=== PATIENT | female | born 1985 | race Caucasian/White ===

== ENCOUNTER 2023-03-22 19:33 | Outpatient (REF) | payer OTHER, SELFPAY ==
[2023-03-26 12:12] LABS: Age Gdln ACOG Testing Note (.); HPV Aptima Negative (Negative); IGP, Aptima HPV, rfx 16/18,45 Note (.)
== END 2023-03-22 19:34 | disposition home or self-care (01) ==
LOC: LAB 19:33
PROVIDERS: Visit Provider Physician Assistant
DX: Z01.419 Encounter for gynecological examination (general) (routine) without abnormal findings (principal)
CPT/HCPCS: 87624; G0145

== ENCOUNTER 2023-03-28 07:58 | Outpatient (OUT) | payer OTHER, SELFPAY ==
--- NOTE | 2023-03-28 08:00 | US_ITS ---
The [address] [address] Patient Name: MIGEL LO MRN: [id number] date: 1985 Sex: F Assigned Patient Location: US Current Patient Location: LAB Accession/Order Number: [id number] Exam Date: 03/28/2023 08:00 Report Date: 03/28/2023 09:19 At the request of: CONCETTA PEARCE Procedure: US pelvis w/ transvaginal EXAM: Pelvic ultrasound HISTORY: . LLQ PAIN, PAIN WITH INTERCOURSE COMPARISON: None. TECHNIQUE: Transabdominal and transvaginal scanning was performed FINDINGS: Scanning of the pelvis demonstrates an anteverted uterus measuring 8.9 x 3.7 x 5.6 cm. Endometrial complex measures 5 mm. Right ovary measures 2.7 x 2.3 x 3.5 cm. Color-flow is noted. Resistive indexes 0.6. Follicles are noted. Left ovary measures 3.2 x 2.3 x 2.4 cm. Color-flow is noted. Resistive indexes 0.6. Follicles are noted. No fluid is noted in the pelvis. US/US pelvis w/ transvaginal IMPRESSION: Normal ultrasound of the pelvis. Electronically authenticated by: MILTON GOMEZ Date: 03/28/2023 09:19
== END 2023-03-28 07:59 | disposition home or self-care (01) ==
LOC: US 07:58
PROVIDERS: Visit Provider Obstetrics & Gynecology
DX: Z00.00 Encounter for general adult medical examination without abnormal findings (principal); E78.5 Hyperlipidemia, unspecified; R73.09 Other abnormal glucose; R10.32 Left lower quadrant pain
CPT/HCPCS: 36415; 76830; 76856; 80053; 80061; 83036; 84436; 84443; 84481; 85025

== ENCOUNTER 2023-03-28 09:01 | Outpatient (OUT) | payer OTHER, SELFPAY ==
[2023-03-28 09:31] LABS: Basophils Absolute Auto 0.1 10^3/uL (0.0-0.1); Basophils Percent Auto 1.2 % (0.2-2.0); Eosinophils Absolute Auto 0.2 10^3/uL (0.0-0.7); Eosinophils Percent Auto 3.1 % (0.9-7.0); Hematocrit 38.8 % (36.0-48.0); Hemoglobin 12.8 g/dL (12.0-16.0); Immature Granulocytes Abs Auto 0.03 10^3/uL (0.00-0.03); Immature Granulocytes Pct Auto 0.4 % (0.0-0.5); Lymphocytes Absolute Auto 2.5 10^3/uL (1.2-3.8); Mean Corpuscular Hemoglobin 29.7 pg (26.7-34.0); Monocytes Absolute Auto 0.5 10^3/uL (0.3-0.8); Monocytes Percent Auto 6.3 % (1.7-12.0); Neutrophils Absolute Auto 4.4 10^3/uL (1.4-6.5); Platelet Count 240 10^3/uL (150-450); Red Blood Count 4.31 10^6/uL (4.20-5.40); Red Cell Distribution Width 12.7 % (11.0-15.0); White Blood Count 7.8 10^3/uL (4.0-11.0)
[2023-03-28 11:18] LABS: Alanine Aminotransferase 23 U/L (14-59); Albumin Globulin Ratio 0.9; Albumin Level 3.7 g/dL (3.4-5.0); Alkaline Phosphatase 78 U/L (46-116); Anion Gap 9.9; Aspartate Amino Transferase 22 U/L (15-37); BUN Creatinine Ratio 22.1; Bilirubin Total 0.4 mg/dL (0.2-1.0); Calcium 8.9 mg/dL (8.5-10.1); Carbon Dioxide 29.4 mmol/L (21.0-32.0); Chloride 103 mmol/L (98-107); Chol HDL Ratio 3.1; Cholesterol 135 mg/dL (<=200); Estimated GFR (African America >60 (>=60); Estimated GFR (Non-African Ame >60 (>=60); Free T3 2.46 pg/mL (2.18-3.98); Glucose 87 mg/dL (74-106); HDL Cholesterol 44 mg/dL (40-60); LDL Cholesterol Calculated 70.8 mg/dL; Potassium 4.3 mmol/L (3.5-5.1); Sodium 138 mmol/L (136-145); Thyroid Stimulating Hormone 2.798 uIU/mL (0.358-3.740); Total Protein 7.7 g/dL (6.4-8.2); Triglycerides 101 mg/dL (<=150); VLDL CHOLESTEROL 20.2 mg/dL
[2023-03-28 11:43] LABS: Estimated Average Glucose 100 mg/dL; Glycohemoglobin A1C 5.1 % (4.5-6.2)
== END 2023-03-28 09:02 | disposition home or self-care (01) ==
LOC: LAB 09:04
PROVIDERS: PCP Family Medicine; Visit Provider Family Medicine
DX: Z00.00 Encounter for general adult medical examination without abnormal findings (principal); E78.5 Hyperlipidemia, unspecified; R73.09 Other abnormal glucose
CPT/HCPCS: 36415; 80053; 80061; 83036; 84436; 84443; 84481; 85025

== ENCOUNTER 2025-02-20 09:47 | Outpatient (OUT) | payer OTHER, SELFPAY ==
--- OUTSIDE RECORDS SUMMARY | 2025-02-20 09:54 | XMS_ITS | Clinical Summary ---
Author Organization [facility] Address [address] [place] [address] Care Team Providers Care Graduating Machine Operator Name Role Phone Mario Olivo MD Primary Care Provider [phone] Allergies Active AllergyReactionsCriticalityNoted JefuDjgwylklXdugsDwdlshv45/20/2017 NEOSPORIN Red dots Medications MedicationSigDispense QuantityRefillsLast FilledStart DateEnd DateStatus tacrolimus (Protopic) 0.1 % ointment Indications:Rash and other nonspecific skin eruptionApply to affected areas, twice a day when flared, 30 day supply 60 g 1105Active ivermectin (Stromectol) 3 MG tablet Indications:Rash and other nonspecific skin eruptionTake 5 tablets all together on one day, repeat in 1 week 10 tablet 5Active Active Problems No known active problems Family History Medical HistoryRelationNameCommentsBreast cancerFather's SisterRelationName StatusCommentsDaughterAliveFatherAliveFather's SisterMotherAliveSonAlive Social History Tobacco UseTypesPacks/DayYears UsedDateSmoking Tobacco: NeverSmokeless Tobacco: Never Tobacco Cessation:Counseling Given: Not Answered Alcohol UseStandard Drinks/WeekCommentsYes0 (1 standard drink = 0.6 oz pure alcohol)Caffeine intake: 1 can energy drink dailyAUDIT-CAnswerDate RecordedQ1: How often do you have a drink containing alcohol?Monthly or less03/20/2023Q2: How many drinks containing alcohol do you have on a typical day when you are drinking?1 or Q3: How often do you have six or more drinks on one occasion?Never12/03/2023CommentsUnknownSex and Gender InformationValue Date RecordedSex Assigned at DpmhnFfncpx97/04/2023 11:34 AM ESTLegal SexFemale 06/30/2022 7:03 PM EDTGender AbkewukmVatajy32/04/2023 11:34 AM ESTSexual WvojvhckndlDrhxneip66/04/2023 11:34 AM EST Last Filed Vital Signs Vital SignReadingTime TakenCommentsBlood Zybpqqyj984/7004/05/2023 8:32 AM EST Pulse--Temperature--Respiratory Rate--Oxygen Saturation--Inhaled Oxygen Concentration--Uubrlh22.1 kg (148 lb)04/05/2023 8:32 AM GUWPgvvyy309.3 cm (5' 3.5 )10/06/2021 12:00 PM EDTBody Mass Index25.8110/06/2021 12:00 PM EDT Plan of Treatment DateTypeDepartmentCare Team (Latest Contact Info)Brmjwelrkts06/11/2026 3:00 PM EDTOffice Visit [facility] [address] [place] [address] Nelly May PA [address] [place] [address] Insurance Care Teams Team MemberRelationshipSpecialtyStart DateEnd Date Mario Olivo MD [address] [facility] [place] [address] [facility]03/21/23
--- OUTSIDE RECORDS SUMMARY | 2025-02-20 09:54 | XMS_ITS | Clinical Summary ---
Author Organization [facility] Address [address] [place] [address] Phone Care Team Providers Care Snack Bar Cook Name Role Phone Unavailable Primary Care Provider Unavailabl e Social History Tobacco UseTypesPacks/DayYears UsedDateSmoking Tobacco: Never Assessed CommentsUnknownSex and Gender InformationValueDate RecordedSex Assigned at Not on fileLegal UcyIcghtc89/26/2022 2:41 PM ESTGender IdentityNot on fileSexual OrientationNot on file Plan of Treatment Not on file
--- OUTSIDE RECORDS SUMMARY | 2025-02-20 09:54 | XMS_ITS | Clinical Summary ---
Author Organization [facility] Address [address] [place], [place] [address] Care Team Providers Care Bindery Machine Setter/Set Up Operator Name Role Phone Greyson Grimm Unavailable Mario Olivo MD Primary Care Provider [phone] Allergies Active AllergyReactionsCriticalityNoted DateCommentsNeosporin (Neomycin-Polymyx) Fzptnvm6101/05/2017 Red dots Medications MedicationSigDispense QuantityRefillsLast FilledStart DateEnd DateStatus acyclovir (ZOVIRAX) 400 mg tablet Take 1 tablet by mouth once daily.12/29/2016Active letrozole (FEMARA) 2.5 mg tablet Take 2 tablets by mouth once daily for 5 days. Menstrual cycle day 3-7 10 tablet Active Ohtkkmuw-Ng-Ymy-Fe-FA ( VITAMIN) tab Take 1 tablet by mouth once daily.Active Choriogonadotropin Saurabh,HumRec (OVIDREL) 250 mcg/0.5 mL syrg Inject subcutaneous as instructed by . 1 Syringe Active Active Problems ProblemNoted DateDiagnosed DatePain in joint, pelvic region and thigh08/22/2006 Overview (08/22/2006): rt. hip tendinitis Social History Tobacco UseTypesPacks/DayYears UsedDateSmoking Tobacco: NeverSmokeless Tobacco: NeverAlcohol UseStandard Drinks/WeekCommentsYes0 (1 standard drink = 0.6 oz pure alcohol)rarelyArea Deprivation IndexAnswerDate RecordedNational Score (1-100), lower number is lower riskNot on file03/24/2020State Score (1-10), lower number is lower riskNot on file03/24/2020Data from: https://www.neighborhoodatlas.[facility].edu/. Last address used for calculationNot on file03/24/2020CommentsNoSex and Gender Information ValueDate RecordedSex Assigned at PukorMzjdvv32/01/2022 1:27 PM EDTLegal Sex Vbdakd8403/19/2012 8:08 AM ESTGender ZhwkcfnuZdeqsj03/01/2022 1:27 PM EDTSexual IlceeqceallZwtzvhao50/01/2022 1:27 PM EDT Last Filed Vital Signs Vital SignReadingTime TakenCommentsBlood Zdpgmeiz765/5803 3:39 PM EDT Rihsl9768 3:39 PM EDTTemperature--Respiratory Rate--Oxygen Saturation-- Inhaled Oxygen Concentration--Cukgxn95.3 kg (144 lb)07/04/2017 3:39 PM EDTHeight 162.6 cm (5' 4 )01/05/2017 11:52 AM EDTBody Mass Index24.72001/05/2017 11:52 AM EDT Plan of Treatment Health MaintenanceDue DateLast DoneCommentsAnxiety Zccluxroq14/04/2005Depression Mizyazzgc12/04/2005HIV Owrlfhlpr98/04/2005Hepatitis C Uviyalgkq87/04/2005 DTaP,Tdap,Td Vaccine (1 - Tdap)2005Hepatitis B Vaccine (1 of 3 - 19+ 3- dose series)2005Cervical Cancer Njpxojnkh56/04/2008HPV Vaccine (1 - 3-dose SCDM series)2013Covid-19 Vaccine (1 - 2024- season)2024Influenza Vaccine (#1)2024 Insurance * Guarantor: Yris Carrillo TypeRelation to PatientDate of BirthPhone Billing AddressSelf BrhDhps37 1985 NA (Work) [address] [place] [address] Care Teams Team MemberRelationshipSpecialtyStart DateEnd Mario Olivo MD [address] [place] [phone] PCP - GeneralFamily Medicine01/05/17 Greyson Grimm [address] [place] [address] ReferringOb/Gyn12/14/16
--- OUTSIDE RECORDS SUMMARY | 2025-02-20 09:54 | XMS_ITS | Encounter Summary ---
Author Organization [facility] Address [address] [place] [address] Care Team Providers Care Biostatistician Name Role Phone Mario Olivo MD Primary Care Provider [phone] Encounter Details DateTypeDepartmentCare Team (Latest Contact Info)Zedylgfxenf33/11/2023Clinisync Result Encounter [facility] Unsolicited Concetta Rodriguez, DO [address] [facility] [address] [place] [id number] Social History Tobacco UseTypesPacks/DayYears UsedDateSmoking Tobacco: NeverAlcohol UseStandard Drinks/WeekCommentsYes0 (1 standard drink = 0.6 oz pure alcohol)Caffeine intake: 1 can energy drink dailyAUDIT-CAnswerDate RecordedQ1: How often do you have a drink containing alcohol?Monthly or less03/20/2023Q2: How many drinks containing alcohol do you have on a typical day when you are drinking?1 or Q3: How often do you have six or more drinks on one occasion?Never3 CommentsUnknownSex and Gender InformationValueDate RecordedSex Assigned at Xfuvnu1103/21/2023 11:34 AM ESTLegal BgeJrxeaw69/15/2023 7:03 PM EDTGender WhpzwehkScuugb08/04/2023 11:34 AM ESTSexual CrctznmyzqpGehbftdg93/04/2023 11:34 AM ESTdocumented as of this encounter Plan of Treatment DateTypeDepartmentCare Team (Latest Contact Info)Ndxuglgswoc73/11/2026 3:00 PM EDTOffice Visit [facility] [address] [place] [phone] Nelly May PA [address] [place] [phone] documented as of this encounter Procedures Procedure NamePriorityDate/TimeAssociated DiagnosisCommentsUS PELVIS W/ EADDMUBUAJFL39/11/2023 9:19 AM EST documented in this encounter Results * US PELVIS W/ TRANSVAGINAL (03/28/2023 9:19 AM EST)Anatomical RegionLaterality ModalityOtherSpecimen (Source)Anatomical Location / LateralityCollection Method / VolumeCollection TimeReceived Time03/28/2023 9:19 AM EST Narrative 03/28/2023 9:22 AM EST [facility] ?[address] ? [place] [address] ? Ultrasound Report ? Signed ? Patient: MIGEL LO ?MR#: [id number] ?? : 1985 ?Acct:[id number] ?? Age/Sex: 37 / F ?ADM Date: 03/28/23 ?? Loc: US ? Attending Dr: Concetta Rodriguez D.O. ? Ordering Physician: Concetta Rodriguez D.O. ?? Date of Service: 03/28/23 ?? Procedure(s): US pelvis w/ transvaginal ?? Accession Number(s): [id number] ? cc: Concetta Rodriguez D.O.; Physician,Non-Staff M.D. ? [facility] ? [address] ? [place] [address] ? Patient Name: ?? MIGEL Candace TERESITA ? MRN: [id number] ? date: 1985 ?Sex: F ?? Assigned Patient Location: US ?? Current Patient Location: LAB ?? Accession/Order Number: [id number] ?? Exam Date: 03/28/2023 ??08:00 ?Report Date: 03/28/2023 ??09:19 ? At the request of: ?? CONCETTA ??JENNIFER ? Procedure: ??US pelvis w/ transvaginal ? EXAM: Pelvic ultrasound ? HISTORY: . LLQ PAIN, PAIN WITH INTERCOURSE ? COMPARISON: None. ? TECHNIQUE: Transabdominal and transvaginal scanning was performed ? FINDINGS: Scanning of the pelvis demonstrates an anteverted uterus measuring ?? 8.9 x 3.7 x 5.6 cm. ? Endometrial complex measures 5 mm. ? Right ovary measures 2.7 x 2.3 x 3.5 cm. Color-flow is noted. Resistive ?? indexes ?? 0.6. Follicles are noted. ? Left ovary measures 3.2 x 2.3 x 2.4 cm. Color-flow is noted. Resistive indexes ? 0.6. Follicles are noted. ? No fluid is noted in the pelvis. ? US/US pelvis w/ transvaginal ?? IMPRESSION: ? Normal ultrasound of the pelvis. ? Electronically authenticated by: MILTON ??PATRICIA ?? Date: 03/28/2023 ??09:19 ? Dictated By: ?Milton Kuhn M.D. ? Signed By: ?03/28/23921 ? DD/ 0919 ? TD/TT: ? Support Director: Procedure Note Radiology, Radiologist, MD - 03/28/2023 [place] [address] Ultrasound Report Signed Patient: MIGEL LO MMR#: [id number] : 1985Acct:[id number] Age/Sex: 37 / FADM Date: 03/28/23 Loc: US Attending Dr: Concetta Rodriguez D.O. Ordering Physician: Concetta Rodriguez D.O. Date of Service: 03/28/23 Procedure(s): US pelvis w/ transvaginal Accession Number(s): [id number] cc: Concetta Rodriguez D.O.; Physician,Non-Staff M.DKinga The [address] [address] Patient Name: MIGEL LO MRN: [id number] date: 1985 Sex: F Assigned Patient Location: US Current Patient Location: LAB Accession/Order Number: [id number] Exam Date: 03/28/2023 08:00 Report Date: 03/28/2023 09:19 At the request of: CONCETTA RODRIGUEZ Procedure: US pelvis w/ transvaginal EXAM: Pelvic ultrasound HISTORY: . LLQ PAIN, PAIN WITH INTERCOURSE COMPARISON: None. TECHNIQUE: Transabdominal and transvaginal scanning was performed FINDINGS: Scanning of the pelvis demonstrates an anteverted uterusmeasuring 8.9 x 3.7 x 5.6 cm. Endometrial complex measures 5 mm. Right ovary measures 2.7 x 2.3 x 3.5 cm. Color-flow is noted. Resistive indexes 0.6. Follicles are noted. Left ovary measures 3.2 x 2.3 x 2.4 cm. Color-flow is noted. Resistiveindexes 0.6. Follicles are noted. No fluid is noted in the pelvis. US/US pelvis w/ transvaginal IMPRESSION: Normal ultrasound of the pelvis. Electronically authenticated by: MILTON KUHN Date: 03/28/2023 09:19 Dictated By: Milton Kuhn M.D. Signed By:03/28/23921 DD/ 8 TD/TT: Support Director: Authorizing ProviderResult TypeResult StatusCorey Jennifer DOCLINISYNC IMAGINGFinal Result documented in this encounter Visit Diagnoses Not on filedocumented in this encounter Care Teams Team MemberRelationshipSpecialtyStart DateEnd Date Mario Olivo MD [address] [place] [address] PCP - Lkjgick62/4/23documented as of this encounter
--- OUTSIDE RECORDS SUMMARY | 2025-02-20 09:54 | XMS_ITS | Patient Health Record ---
Author Organization [facility] [place] Address [address] [place] [address] Care Team Providers Care Business Administration Professor Name Role Phone Pj Olivo Primary Care Provider Allergies No Known Allergies Reason For Referral Reason and knee - L and rossi hip Diagnosis 1 Low back pain at [facility] (M54.50) Referral Organization [facility] Referring Provider First Name Pj Referring Provider Last Name Geovani Referring Provider Speciality Family Med icine Referred Provider TB, Physical Therap y Referred Provider Specialty Physical The rapist Referral Priority Routine Medications Medication SIG (Take, Route, Frequency, Duration) Notes Start Date End Date Status Triamcinolone Acetonide 0.1 % 1 application Exte rnally bid 5ActiveAcyclovir 200 MG1 capsule Orally Daily; Duration: 90 daysActive Social History Tobacco Use: Social History Observation Description Date Details (start date - stop date) Never Smoker NA - NA Alcohol Screen (Audit-C) Question Answer Notes Did you have a drink containing alcohol in the p ast year? Yes How often did you have 6 or more drinks on one occasion in the past year?Never (0 point)How many drinks did you have on a typical day when you were drinking in the past year?1 or 2 drinks (0 point)How often did you have a drink containing alcohol in the past year?Monthly (2 points)Qsuafa2NqlhthvhqkwtuxWnxtkytkFmlgxir Control (Standard) Question Answer Notes Tobacco use: Nonsmoker AUDIT-C (Standard) Question Answer Notes Did you have a drink containing alcohol in the p ast year? Yes How often did you have six or more drinks on one occasion in the past year?Never (0 point)How many drinks did you have on a typical day when you were drinking in the past year?1 or 2 drinks (0 point)How often did you have a drink containing alcohol in the past year?Monthly or less (1 point)Qbdcyj1HufespbibapinjNvlxedmv Problems Problem Type SNOMED Code ICD Code Onset Dates Problem Status W/U Status Risk Notes Problem Eczema (79169819) Eczema (L30.9) ActiveconfirmedProblemWell adult (360980619)Well adult (Z00.00)Activeconfirmed ProblemSeasonal allergy (904801604)Seasonal allergies (J30.2)Activeconfirmed ProblemOverweight (179610027)Over weight (E66.3)Activeconfirmed Vital Signs Heart Rate 66 /min 02/20/2025 Blood pressure mm Hg02/20/20259817Vdlloe98 in02/20/2025lood pressure zkznkweh998 mm Hg02/20/20252184Uztbpb303.6 lbs104/22/2024BMI26.02 kg/m202/20/2025 Encounters Encounter Location Date Provider Diagnosis [facility] [address] [place] [address] 03/22/2024 Pj Hoy Well adult Z00.00 [facility] [address] [place] [address] 08/23/2024 Pj Hoy Eczema L30.9 [facility] [address] [place] [address] 02/20/2025 Pj Hoy Well adult Z00.00 an d Low back pain at multiple sites M54.50 [facility] [address] [place] [address] 08/24/2024 Pj Hoy Eczema L30.9 [facility] [address] [place] [address] 03/29/2024 Pj Hoy [facility] [place] [address] [facility] [place] [address]/05/2025Doug Hoy Assessments Encounter Date Diagnosis (ICD Code) Assessment Notes Treatment Notes Treatment Clinical Notes Section Notes 03/22/2024 Well adult (ICD-10 - Z00.00) 08/23/2024Eczema (ICD-10 - L30.9)08/24/2024Eczema (ICD-10 - L30.9)02/20/2025Well adult (ICD-10 - Z00.00)02/20/2025Low back pain at multiple sites (ICD-10 - M54.50) Plan Of Treatment Pending Test Test Name Order Date CMP (COMPLETE METABOLIC PANEL) 3 CMP (COMPLETE METABOLIC PANEL) 4 HEMOGLOBIN A1C (GLYCO) 03/25/2023 HEMOGLOBIN A1C (GLYCO) 03/22/2024 HEMOGLOBIN A1C (GLYCO) 02/20/2025 LIPID PANEL (CHOL/TRIG/HDL/LDL) 02/21/20 25 LIPID PANEL (CHOL/TRIG/HDL/LDL) 03/25/20 23 LIPID PANEL (CHOL/TRIG/HDL/LDL) 03/22/20 24 CBC WITH DIFF 03/22/2024 CBC WITH DIFF 03/25/2023 MAMM Mammograms CAD 03/25/2023 XR HIP LT 2 3V W PELVIS 02/20/2025 THYROID PANEL (T4/TSH/FREE T3) 5 THYROID PANEL (T4/TSH/FREE T3) 3 THYROID PANEL (T4/TSH/FREE T3) 4 XR HIP RT 2 3V W PELVIS 02/20/2025 MM screening mammo BI 03/22/2024 BI US BREAST LIMITED BILATERAL 5 XR sacrum coccyx min 2V 02/20/2025 CMP (COMP MET JOSE) w/eGFR CKD-EPI 2024 CBC WITH DIFF 02/20/2025 Insurance Providers Payer Name Payer Address Payer Phone Subscriber Number Group Number Insured Name Patient Relationship to Insured Coverage Start Date Coverage End Date [employer] [address] [place] [phone] [id number] Yris Carrillo Self - patient is the insured Medications Administered Medication Instructions Date of Administration Dosage Notes Dexamethasone, 4mg/mL mg Medical (General) History Medical History History ICD Code Well adult Z00.00 Seasonal allergies J30.2 Over weight E66.3 Surgical History Surgery Date(Month/Year) Breast Augmentation 2022 IVF- Surgery
--- OUTSIDE RECORDS SUMMARY | 2025-02-20 09:54 | XMS_ITS | Clinical Summary ---
Author Organization [employer] Address [id number] [address] [place] [address] Care Team Providers Care Oracle Programmer Analyst Name Role Phone Mario Olivo MD Primary Care Provider [phone] Allergies Active AllergyReactionsCriticalityNoted DateCommentsMiconazole NitrateRashLow 09/19/2019 Medications MedicationSigDispense QuantityRefillsLast FilledStart DateEnd DateStatus PNV no.95/ferrous fum/folic ac ( ORAL) Take by mouth.Active magnesium oxide (MAG-OX) 400 mg tablet Take 400 mg by mouth daily.Active aspirin 81 mg Take 81 mg by mouth daily.Active acyclovir (ZOVIRAX) 400 mg tablet 08/24/2019Active docusate sodium (COLACE) 100 mg capsule Take 1 capsule (100 mg total) by mouth 2 (two) times a day. 60 capsule 01/18/2020Active ibuprofen (ADVIL,MOTRIN) 800 mg tablet Take 1 tablet (800 mg total) by mouth every 8 (eight) hours as needed (Cramping). 30 tablet 01/18/2020Active Active Problems ProblemNoted DateDiagnosed DateSevere pre-eclampsia in third vkaxvkbfh38/16/2020 resulting from in vitro vfvjkebodvesl34/22/2020History of pre- eclampsia in prior , currently /22/2020History of delivery, currently slzkufao28/22/2020 Overview (10/08/2019): Admitted to evaluate BP for suspected preeclampsia- subsequently had ROM and labor. Delivered in 4-6 hours. While in labor or after, had diagnosis likely consistent with preeclampsia with severe features. Was not induced. 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 YONATHAN xvdbwbgo00/22/2020Pregnancy with history of miscarriage, first trimester 10/08/2019Oral herpes simplex, not currently diqbme9910/08/2019 Overview (10/08/2019): SP recent rx History of /22/2020 Immunizations No known immunizations Family History Medical HistoryRelationNameCommentsHypertensionFatherDepressionMother HypertensionMotherMigrainesMotherRelationNameStatusCommentsFatherMother Social History Tobacco UseTypesPacks/DayYears UsedDateSmoking Tobacco: NeverSmokeless Tobacco: NeverAlcohol UseStandard Drinks/WeekCommentsNot Currently0 (1 standard drink = 0.6 oz pure alcohol)PHQ-2AnswerDate RecordedTotal Nyuxj249Childcare AnswerDate RecordedDo problems getting child care lead teacher make it difficult for you to work or study?No01/08/2020EmploymentAnswerDate RecordedDo you need help finding a local career center and/or a training program?No01/08/2020Purpose - LifeAnswer Date RecordedPurpose and direction in mtnhZvdhauy18/11/2021CommentsNoSex and Gender InformationValueDate RecordedSex Assigned at BirthNot on fileLegal QqaAnxius81/29/2020 2:13 PM EDTGender IdentityNot on fileSexual OrientationNot on file Last Filed Vital Signs Vital SignReadingTime TakenCommentsBlood Uosxnrso237/8910 9:00 AM EDT Cowli48809/02/2020 9:00 AM DGTNbuwfkfalgh38.5 ??C (97.7 ??F)01/18/2020 3:40 AM EDTRespiratory Szca1176 9:00 AM EDTOxygen Mroxvviwny41%01/16/2020 6:00 PM EDTInhaled Oxygen Concentration--Iqebdl65.2 kg (209 lb 14.1 oz)01/17/2020 8:00 PM RNXLdaylb375.6 cm (5' 4 )01/08/2020 2:57 PM EDTBody Mass Index36.03 01/08/2020 2:57 PM EDT Plan of Treatment Health MaintenanceDue DateLast DoneCommentsDepression Bqwetnwry42/04/1999Tobacco Fzkjijehw35/04/1999Adult BMI Udldcogzn86/04/2005DTaP,Tdap and Td Vaccines (1 - Tdap)2005Pap Smear11/20/2007Influenza Lsxajta28/01/668185, 02/16/2016, 03/19/2009 Medical Devices Not on file Insurance Advance Directives * Full Code (Latest Code Status on File) Date ActivatedDate InactivatedComments01/08/2020 3:55 01/18/2020 10:31 PM Care Teams Team MemberRelationshipSpecialtyStart DateEnd Date Mario Olivo MD PCP - GeneralFamily Medicine09/14/19
--- OUTSIDE RECORDS SUMMARY | 2025-02-20 09:55 | XMS_ITS | CCD ---
Author Organization [facility] Care Team Providers Care Screen Roller Name Role Phone REQUEST, DR NONE LISTED Admitting Unavaila ble REQUEST, NONE LISTED Attending Unavaila kevin OLIVO, DR RICHARD Primary Care Unavailable MERLINE DARBY MD, DMD Attending Unav ailable Mario Olivo Attending Unavailable Mario Olivo Primary Care Unavailable Mario Olivo Admitting Unavailable Mario Olivo MD Primary Care Provider [phone] Mario Olivo MD Primary Care Provider [phone] SANDRA MAY Attending Unavailable SANDRA MAY Attending Unavailable SANDRA MAY Attending Unavailable ELSA NAM Attending Unavailable Mario Olivo MD Primary Care Provider Allergies Allergy ClassificationReported Allergen(s)Allergy TypeDate of OnsetReaction(s) Facility (1 source)Bacitracin / Neomycin / Polymyxin BDrug Ymkbtdj62-09-2512[facility] (3 sources)MiconazoleDrug Llzdbks13-71-2356CimmWFLM Profista Work Phone: (11 sources)OtherAllergy to yermublye94-05-6778AivnmunLOKI Healthcare Medications Current Medications MedicationDrug Class(es)DatesSig (Normalized)Sig (Original)acyclovir 400 mg oral tablet (5 sources)Herpesvirus Nucleoside Analog DNA Polymerase Inhibitor, Herpes Simplex Virus Nucleoside Analog DNA Polymerase Inhibitor, Herpes Zoster Virus Nucleoside Analog DNA Polymerase InhibitorStart: 02-28-2023 End: 13-42-1320mzdy 1 tablet by mouth in the morningacyclovir (Zovirax) 400 MG tablet Take 400 mg by mouth in the morning. 02/28/2023 10/02/2024 Discontinued (Therapy completed)betamethasone 0.5 mg/ml topical cream (4 sources)CorticosteroidStart: 08-28-2024 End: 70-78-9568ljosfbxbsfmkf dipropionate 0.05 % cream Indications: Rash and other nonspecific skin eruption Apply(1g) to affected areas (back/chest)a, up to twice a day when flared, do not use one the face, groin, or underarms, 30 day supply 45 g 11 08/28/2024 10/02/2024 Discontinued (Ineffective)ivermectin 3 mg oral tablet (2 sources)Antiparasitic, PediculicideStart: 70-65-6667ommesqpaju (Stromectol) 3 MG tablet Indications: Rash and other nonspecific skin eruption Take 5 tablets all together on one day, repeat in 1 week 10 tablet 10/23/2024 ActiveStart: 66-67-8564mwqhtqfmso (Stromectol) 3 MG tablet Indications: Rash and other nonspecific skin eruption Take 5 tablets all together on one day, repeat in 1 week 10 tablet 10/23/2024 Activetacrolimus 0.001 mg/mg topical ointment (7 sources)Calcineurin Inhibitor ImmunosuppressantStart: 22-24-8126kybpxrcndb (Protopic) 0.1 % ointment Indications: Rash and other nonspecific skin eruption Apply toaffected areas, twice a day when flared, 30 day supply 60 g 11 10/02/2024 Activetriamcinolone acetonide 1 mg/ml topical cream (2 sources)CorticosteroidStart: 08-23-2024 End: 80-40-7993mytjoavzlkrgo (Kenalog) 0.1 % cream 1 Application every 12 (twelve) hours 08/23/2024 10/02/2024 Discontinued Problems Problem ClassificationProblemDateDocumented DateEpisodic/ChronicOther aftercare (2 sources)Removal of sutures done; Translations: [Encounter for removal of sutures]40-93-7296YbrbpcztSqszd and unspecified benign neoplasm (2 sources)Melanocytic nevus of trunk; Translations: [Melanocytic nevi of trunk] 44-42-2311ApnfsiheTbqqj screening for suspected conditions (not mental disorders or infectious disease) (1 source)Encounter for screening mammogram for malignant neoplasm of breast; Translations: [Encounter for screening mammogram for malignant neoplasm of breast]Onset: 61-01-5759UoqkccdqYsyco skin disorders (2 sources)Lentigo simplex; Translations: [Other melanin hyperpigmentation] 90-33-5555RcnerubhKxdhl skin disorders (10 sources)Eruption; Translations: [Rash and other nonspecific skin eruption] 98-74-6963MgdurbynGunve skin disorders (2 sources)Seborrheic keratosis; Translations: [Other seborrheic keratosis] 38-13-4450Xixevbaw Results Test NameValueInterpretationReference RangeFacilityNo Panel Informationon 41-24-6474Yfce of biopsy: punch Informed consent: discussed and consent obtained Informed consent comment: The risks and benefits were discussed. Risks include, but are not limited to, bleeding, infection, scarring, pain, & nerve damage. An opportunity to ask questions prior to the procedure was permitted and questions were answered. Patient was prepped and draped in usual sterile fashion: Area cleansed with alcohol. Anesthesia: the lesion was anesthetized in a standard fashion Anesthetic: 1% lidocaine w/ epinephrine 1-100,000 buffered w/ 8.4% NaHCO3 Punch size: 4 mm (A biopsy by punch method was performed using a dermal punch) Suture size: 4-0 Suture type: nylon Suture type comment: Hemostasis was achieved with suture. Suture removal (days): 12 Hemostasis achieved with: suture Outcome: patient tolerated procedure well Post-procedure details: sterile dressing applied and wound care instructions given Post-procedure details comment: Emphasized the need to contact clinic for any signs of infection, uncontrollable bleeding, or complications. Dressing type: bandage Additional details: Amount of lidocaine used: 1 cc Number of sutures used: 2 Specimen sent for: H&E Photo [facility] screening mammo BI w/CADon 29-87-8488CX screening mammo BI w/[facility] [place] [address] Mammography Report Signed Patient: Migel Lo MR#: [id number] : 1985 Acct:[id number] Age/Sex: 38 / F ADM Date: 03/29/24 Loc: [place] Room: Type: [facility] Attending Dr: Mario Olivo MD Copies to: Mario Olivo MD Ordering Provider: Mario Olivo MD Date of Service: 03/29/24 MM/MM screening mammo BI w/CAD: Z00.00 BILATERAL Screening Full Field digital mammogram with 3-D imaging. Full field digital CC and MLO imaging performed. CAD utilized. COMPARISON: Baseline HISTORY: Annual screening BREAST COMPOSITION: Scattered fibroglandular densities of the breast parenchyma identified BREAST CALCIFICATIONS: Benign calcifications present. VASCULAR CALCIFICATIONS: None ARCHITECTURAL DISTORTION: None BREAST NODULE: None AXILLARY LYMPH NODES: Normal POSTSURGICAL CHANGES: Bilateral breast implantation MM/MM screening mammo BI w/CAD IMPRESSION: No mammographic evidence of malignancy. Routine follow-up recommended in one year. RESULT CODE: 2 Benign Findings(s) DENSITY CODE: 2 (approximately 25-50% glandular) FOLLOW UP: 1YR THE FALSE-NEGATIVE RATE OF MAMMOGRAPHY IS APPROXIMATELY 10%. IMAGING OF A PALPABLE ABNORMALITY MUST BE BASED ON CLINICAL GROUNDS. PATIENT WAS ENTERED INTO A REMINDER SYSTEM WITH A TARGET DUE DATE FOR THE NEXT MAMMOGRAM. Impression dictated by: Viet Sifuentes M.D.03/29/2024 10:34 AM Dictation Location: [facility] Transcribed By: [facility] 03/29/24 1034 Dictated By: Viet Sifuentes DO 03/29/24 1033 Signed By: 03/29/[address] [place] [address] Physician GroupUS PELVIS W/ TRANSVAGINALon [id number] [address] Ultrasound Report Signed Patient: MIGEL LO MR#: [id number] : 1985 Acct:[id number] Age/Sex: 37 / F ADM Date: 03/28/23 Loc: US Attending Dr: Concetta Rodriguez D.O. Ordering Physician: Concetta Rodriguez D.O. Date of Service: 03/28/23 Procedure(s): US pelvis w/ transvaginal Accession Number(s): [id number] cc: Concetta Rodriguez D.O.; Physician,Non-Staff Frank The [address] [address] Patient Name: MIGEL OL MRN: [facility]:[id number] date: 1985 Sex: F Assigned Patient Location: Current Patient Location: LAB Accession/Order Number: [id number] Exam Date: 03/28/2023 08:00 Report Date: 03/28/2023 09:19 At the request of: CONCETTA RODRIGUEZ Procedure: US pelvis w/ transvaginal EXAM: Pelvic ultrasound HISTORY: . LLQ PAIN, PAIN WITH INTERCOURSE COMPARISON: None. TECHNIQUE: Transabdominal and transvaginal scanning was performed FINDINGS: Scanning of the pelvis demonstrates an anteverted uterus measuring 8.9 x 3.7 x 5.6 cm. Endometrial complex measures 5 mm. Right ovary measures 2.7 x 2.3 x 3.5 cm. Color-flow is noted. Resistive indexes 0.6. Follicles are noted. Left ovary measures 3.2 x 2.3 x 2.4 cm. Color-flow is noted. Resistive indexes 0.6. Follicles are noted. No fluid is noted in the pelvis. US/US pelvis w/ transvaginal IMPRESSION: Normal ultrasound of the pelvis. Electronically authenticated by: MILTON KUHN Date: 03/28/2023 09:19 Dictated By: Milton Kuhn M.D. Signed By: 03/28/23921 DD/ 8 TD/TT: Lean Manufacturing Engineer:TBHRadiology, Radiologist, MD - 03/28/2023 [place] [address] Ultrasound Report Signed Patient: MIGEL LO MR#: [id number] : 1985 Acct:[id number] Age/Sex: 37 / F ADM Date: 03/28/23 Loc: US Attending Dr: Concetta Rodriguez D.O. Ordering Physician: Concetta Rodriguez D.O. Date of Service: 03/28/23 Procedure(s): US pelvis w/ transvaginal Accession Number(s): [id number] cc: Concetta Rodriguez D.O.; Physician,Non-Staff Frank The [address] [address] Patient Name: MIGEL LO MRN: [id number] date: 1985 Sex: F Assigned Patient Location: US Current Patient Location: LAB Accession/Order Number: [id number] Exam Date: 03/28/2023 08:00 Report Date: 03/28/2023 09:19 At the request of: CONCETTA RODRIGUEZ Procedure: US pelvis w/ transvaginal EXAM: Pelvic ultrasound HISTORY: . LLQ PAIN, PAIN WITH INTERCOURSE COMPARISON: None. TECHNIQUE: Transabdominal and transvaginal scanning was performed FINDINGS: Scanning of the pelvis demonstrates an anteverted uterus measuring 8.9 x 3.7 x 5.6 cm. Endometrial complex measures 5 mm. Right ovary measures 2.7 x 2.3 x 3.5 cm. Color-flow is noted. Resistive indexes 0.6. Follicles are noted. Left ovary measures 3.2 x 2.3 x 2.4 cm. Color-flow is noted. Resistive indexes 0.6. Follicles are noted. No fluid is noted in the pelvis. US/US pelvis w/ transvaginal IMPRESSION: Normal ultrasound of the pelvis. Electronically authenticated by: MILTON KUHN Date: 03/28/2023 09:19 Dictated By: Milton Kuhn M.D. Signed By: 03/28/23921 DD/ 8 TD/TT: Lean Manufacturing Engineer: RYAN HealthcareRadiology Study observation (narrative)RYAN HealthcareUS PELVIS W/ TRANSVAGINALOrdered By: Radiologist Radiology on 78-28-8805BQMV Healthcare Work Phone: m TUBERCULOSIS BY Nik CARLOS 02-04-2022M. TB Mitogen-Nil9.97 IU/mLNTrumbull Memorial HospitalComment on above:Order Comment: The M. Tuberculosis antigen levels cannot be correlated to stage or degree of infection, response to therapy or likelihood for progression to active disease. Results from QuantiFERON TB Gold Plus must be used in conjunction with individual epidemiological history, current medical status, and results of other diagnostic evaluation.Performed By: #### QFTB #### [facility] (DEFAULT) [address] [id number]. TB Nil0.03 IU/Corey HospitalComment on above:Order Comment: The M. Tuberculosis antigen levels cannot be correlated to stage or degree of infection, response to therapy or likelihood for progression to active disease. Results from QuantiFERON TB Gold Plus must be used in conjunction with individual epidemiological history, current medical status, and results of other diagnostic evaluation.Performed By: #### QFTB #### [facility] (DEFAULT) [address] [address]W. TB TB1-Nil0.00 IU/mLNTrumbull Memorial HospitalComment on above:Order Comment: The M. Tuberculosis antigen levels cannot be correlated to stage or degree of infection, response to therapy or likelihood for progression to active disease. Results from QuantiFERON TB Gold Plus must be used in conjunction with individual epidemiological history, current medical status, and results of other diagnostic evaluation.Performed By: #### QFTB #### [facility] (DEFAULT) [address] [address]K. TB TB2-Nil0.00 IU/Corey HospitalComment on above:Order Comment: The M. Tuberculosis antigen levels cannot be correlated to stage or degree of infection, response to therapy or likelihood for progression to active disease. Results from QuantiFERON TB Gold Plus must be used in conjunction with individual epidemiological history, current medical status, and results of other diagnostic evaluation.Performed By: #### QFTB #### [facility] (DEFAULT) [address] [address]. Tuberculosis by Quantiferon in tubeNegativeNormalNegative [facility]ittman Medical CenterComment on above:Order Comment: The M. Tuberculosis antigen levels cannot be correlated to stage or degree of infection, response to therapy or likelihood for progression to active disease. Results from QuantiFERON TB Gold Plus must be used in conjunction with individual epidemiological history, current medical status, and results of other diagnostic evaluation.Performed By: #### QFTB #### [facility] (DEFAULT) [address] [address]Yhhtqjgjfhhpfrhzpd 95-77-1630LphfejhxuzgvcrtkAqlwhilwvv [facility] Dermat[facility] Laboratory [address] [place] [id number] DERMATOPATHOLOGY REPORT Name:MIGEL OL Rec #. [id number] Location: [facility] Date of Procedure: 02/05/2020 Race: Date Received: 02/07/2020 /Sex: 1985 (Age: 34) / F Date Reported: 02/08/2020 Other: Submitting Physician:ELSA NAM APRN, MEAT CUTTING BLOCK REPAIRER-C FINAL DIAGNOSIS A. SKIN, R INFRAMAMMARY, BIOPSY: DERMAL NEVUS, PRESENT ON THE DEEP MARGIN. B. SKIN, L INFERIOR FLANK, BIOPSY: COMPOUND NEVUS, PRESENT ON THE DEEP MARGIN. Electronically Signed Out by SHUKRI FULTON M.D. Electronically Signed Out By SHUKRI FULTON MD/[facility] By the signature on this report, the individual or group listed as making the Final Interpretation/Diagnosis certifies that they have reviewed this case. Clinical History: A. 0.9 x 0.5 cm. Inflamed IDN. Biopsy. B. 0.9 x 0.6 cm. Atypical nevus vs. nevus. Biopsy. Specimens Submitted As: A: SKIN, R INFRAMAMMARY B: SKIN, L INFERIOR FLANK Gross Description: A: Received in formalin is a chen piece of skin measuring 7 x 5 x 3 mm. Inked and embedded in toto. B: Received in formalin is a chen piece of skin measuring 7 x 5 x 3 mm. Inked and embedded in toto. [facility]/02/07/2020 Microscopic Description: A. Microscopic analysis shows a symmetric, papular proliferation of bland melanocytes in dermis. Dermal melanocytes mature with increasing depth in dermis and show no cytologic atypia. B. Microscopic analysis shows a symmetric proliferation of melanocytes in epidermis and dermis. Melanocytes nest regularly along the dermal-epidermal junction, and dermal melanocytes mature with increasing depth in dermis. The melanocytes show no cytologic atypia.[facility] HospitalComment on above:Performed By: #### D #### Dermatopathology Encounters Encounter DateEncounter TypeCare ProviderFacilityStart: 10-23-2024 End: 13-75-3474Ptpvfg flowsheetNatalie A Felter COMMUNITY RESOURCE OFFICER-SHORT PIECE HANDLER Work Phone: [facility] DERMStart: 10-23-2024 End: 13-65-3154Ndbwhd flowsheetNatalie A Felter COMMUNITY RESOURCE OFFICER-SHORT PIECE HANDLER Work Phone: [facility] DERMStart: 10-23-2024 End: 08-28-7662Cokser outpatient visit 5 minutesNatalie A Felter COMMUNITY RESOURCE OFFICER-SHORT PIECE HANDLER Work Phone: [facility] SWS DERMComment on above:Rash and other nonspecific skin eruption (Primary Dx); Encounter for removal of suturesStart: 10-23-2024 End: 43-69-2618geiykyddtaOIMYTGG A FELTERNot AvailableStart: 10-11-2024 End: 33-14-0495txpvumklnhITJXZ CLAYTONEIMNot AvailableStart: 10-11-2024 End: 06-18-8416Jpuemce encounter procedureThe [facility] Work Phone: [facility] SWS DERMComment on above:Rash and other nonspecific skin eruption (Primary Dx)Start: 10-02-2024 End: 71-87-8650cicqxvfrxeHGJUZ NORTHEIMNot AvailableStart: 10-02-2024 End: 97-60-6064Skxqtu outpatient visit [address] [facility] Work Phone: [facility] SWS DERMComment on above:Rash and other nonspecific skin eruption (Primary Dx)Start: 08-28-2024 End: 33-51-4890Rhnmvb outpatient new [address] [facility] Work Phone: [facility] SWS DERMComment on above:Melanocytic nevus of trunk (Primary Dx); Lentigo simplex; Rash and other nonspecific skin eruption; Seborrheic keratosisStart: 08-28-2024 End: 66-61-3196poycpahxrlTYAUD CLAYTONEIMNot AvailableStart: 08-28-2024 End: 63-15-2597Cmkija [facility] Work Phone: [facility] S[facility] DERMStart: 08-28-2024 End: 43-31-4339Ryowbn flowsheetRychristopher May AUNDREA Work Phone: [facility] DERMStart: 03-29-2024 End: 28-96-2202bhknqumixrBdhrnpg M HoyFacility:[facility] Start: 03-28-2023 End: 92-08-0729Kzyenamkc Result EncounterCorey Jennifer DO Work Phone: [facility] External Department UnsolicitedStart: 03-28-2023 End: 89-81-3997Mdomdrkrl Result EncounterCorey Jennifer DO Work Phone: NOX[facility] External Department UnsolicitedStart: 05-03-2022 ambulatoryMAADARSH DARBY MD DMDFacility:[address]Yhmwg: 86-71-7496dktwrxcnoxUA NONE LISTED REQUESTFacility:H1 Procedures DateProcedureProcedure DetailPerforming ClinicianStart: 89-52-1395YXTA / NAIL BIOPSYRymalue Yadira PA Work Phone: Start: 38-80-2155BR PELVIS W/ TRANSVAGINALCorey Jennifer DO Work Phone: Plan of Treatment DateCare ActivityDetailAuthorStart: 08-26-2025 End: 31-84-3361Ozjwxky encounter procedureNOMS SWS DERMStart: 12-05-2024 End: 13-90-3677Vtvdeif encounter bgdyyvvwt57/20/2025 2:50 PM EDT Office Visit [facility] [address] [place] [address] Nickie Estrada MD [address] [place] [address] [facility] SWS DERMStart: 10-23-2024 End: 81-01-9711Ndoyyit encounter procedureNOMS SWS DERMComment on above:Arrived Start: 08-28-2024 End: 09-59-5947Klvitki encounter yvlxkmspj23/13/2025 3:00 PM EDT Office Visit [facility] [address] [place] [address] Sandra May PA [address] [place] [address] ArrivedNOVENCOR HOSPITAL DERMComment on above:Arrived Dermatopathology examDermatopathology exam Pathology and Cytology Timed Rash and other nonspecific skin eruption ReleaseUpon Ordering for 1 Occurrences starting 10/11/2024[facility] Work Phone: comment on above:Release Upon Ordering for 1 Occurrences starting 10/11/2024 Payers DatePayer CategoryPayerPolicy [id number] Health [id number] [id number] [id number] [id number] [id number] [id number] Social History DateTypeDetailFacilityStart: 03-20-2023 End: 61-22-9099Hmaaaol smoking status NHISNever smoked tobaccoSAN JUAN HOSPITAL Healthcare Start: 03-22-2023 End: 60-10-1575Dwdbnvxoz beverage intakeCurrent drinker of alcohol (finding)[facility] HealthcareStart: 03-20-2023 End: 42-65-8003Zuvuqho of Social functionNOND HealthcareStart: 03-20-2023 End: 62-72-9592Gadfzes Use Disorder Identification Test - Consumption [AUDIT-C] [facility] HealthcareHow often to you have a drink containing alcohol?Monthly or less [facility] HealthcareHow many standard drinks containing alcohol do you have on a typical day?1 or 2N[facility]S HealthcareHow often do you have 6 or more drinks on 1 occasion?NeverNOND HealthcareStart: 26-28-7264Auoppdx CommentCaffeine intake: 1 can energy drink dailyNOND HealthcareStart: 33-62-9082Nks assigned at FemaleSAN JUAN HOSPITAL HealthcareStart: 93-00-2977Rwrzaw identityIdentifies as female gender (finding)[facility] HealthcareStart: 50-85-7742Arbkfn orientationHeterosexual (finding)[facility] HealthcareStart: 83-92-2911Qjwxlkb use and exposureSmokeless tobacco non-userNOND HealthcareStart: 20-84-0793UpmCsvsaiAFUZ Healthcare History of Present illness Narrative 10-23-2024 Note Date & TytlRgcsChlvadzl37-76-5174 History of Present illness Narrative* Elsa Pinky Nam, COMMUNITY RESOURCE OFFICER-SHORT PIECE HANDLER - 10/23/2024 9:10 AM EDT Suture Removal Patient here for suture removal: No complaints of redness, drainage or swelling at site, compliant with wound care. Location: Mid upper back Procedure Performed: Punch biopsy Date of Procedure: 10/11/2024 Medications: None, per Sandra's treatment plan order 3 mg ivermectin tablets, take 5 tablets today and repeat in seven days. Follow up Diagnosis: Rash Location: trunk and neck and legs Last visit: 10/11/2024 Symptoms: red, itchy Status: no change Treatments tried and failed: TAC 0.1% cream, Betamethasone Current treatment: Protopic ointment All pertinent medical history, medications, and allergies were reviewed. General Exam: alert, oriented to person, place, and time, normal affect, well appearing Unaccompanied A focused exam completed based on patient reported problems, see below: Skin Exam 1. RASH AND OTHER NONSPECIFIC SKIN ERUPTION Generalized Reviewed pathology results, drug eruption vs bite reaction. Patient reports no other family membersare itching. Her medications are Acyclovir, Melatonin 1 mg at bedtime and sometimes Ibuprofen for headache. She did take KSYRS311 capsules in early June for 24 days, Discussed stopping all non-essential medications to see if symptoms resolve and also discussed Ivermectin 3mg, take 5 tablets all together on 1 day and repeat in 1 week. Copy of pathology provided to patient. ivermectin (Stromectol) 3 MG tablet Take 5 tablets all together on one day, repeat in 1 week Related Medications tacrolimus (Protopic) 0.1 % ointment Apply to affected areas, twice a day when flared, 30 day supply 2. ENCOUNTER FOR REMOVAL OF SUTURES Mid Back Sutures are intact Suture Removal: Procedure: Sutures removed without difficulty. Post-Procedure instructions: Instructed to discontinue wound care. Pathology results discussed. Next Visit: 6 weeks with Sandra [facility]The [facility] History of Present illness Narrative 10-11-2024 Note Date & RijbTcrpHybbgwiq38-74-6068 History of Present illness Narrative* AUNDREA Hasitngs - 10/11/2024 2:50 PM EDT Images from the original note were not included. Follow up Diagnosis: Rash Location: trunk and neck and legs Last visit: 9 days ago Symptoms: red, itchy Status: no change Treatments tried and failed: TAC 0.1% cream, Betamethasone Current treatment: Protopic ointment (works but now its on the legs); here today for biopsy All pertinent medical history, medications, and allergies were reviewed. General Exam: alert, oriented to person, place, and time, normal affect, well appearing Unaccompanied A focused exam completed based on patient reported problems, see below: Skin Exam 1. RASH AND OTHER NONSPECIFIC SKIN ERUPTION Mid Upper Back [place] patches and plaques Biopsy today, see procedure note. Lesion biopsy - Mid Upper Back Type of biopsy: punch Informed consent: discussed and consent obtained Informed consent comment: The risks and benefits were discussed. Risks include, but are not limitedto, bleeding, infection, scarring, pain, & nerve damage. An opportunity to ask questions prior to the procedure was permitted and questions were answered. Patient was prepped and draped in usual sterile fashion: Area cleansed with alcohol. Anesthesia: the lesion was anesthetized in a standard fashion Anesthetic: 1% lidocaine w/ epinephrine 1-100,000 buffered w/ 8.4% NaHCO3 Punch size: 4 mm (A biopsy by punch method was performed using a dermal punch) Suture size: 4-0 Suture type: nylon Suture type comment: Hemostasis was achieved with suture. Suture removal (days): 12 Hemostasis achieved with: suture Outcome: patient tolerated procedure well Post-procedure details: sterile dressing applied and wound care instructions given Post-procedure details comment: Emphasized the need to contact clinic for any signs of infection, uncontrollable bleeding, or complications. Dressing type: bandage Additional details: Amount of lidocaine used: 1 cc Number of sutures used: 2 Specimen sent for: H&E Photo taken Specimen A - Dermatopathology exam Differential Diagnosis: Atopic dermatitis vs. Keratosis pilaris vs. Contact dermatitis vs. Hypersensitivity reaction Check Margins: No Related Medications tacrolimus (Protopic) 0.1 % ointment Apply to affected areas, twice a day when flared, 30 day supply Next Visit: 10-12 day s/r [facility] History of Present illness Narrative 10-02-2024 Note Date & SrjwKfkeKlujjkat96-33-7758 History of Present illness Narrative* AUNDREA Hastings - 10/02/2024 9:50 AM EDT Images from the original note were not included. Follow up Diagnosis: Rash unspecified Location: generalized Last visit: 1 month ago Symptoms: red, itchy, bumps Status: rash is coming and going Treatments tried and failed: Triamcinolone 0.1% cream Current treatment: Betamethasone Dipro 0.05% cream All pertinent medical history, medications, and allergies were reviewed. General Exam: alert, oriented to person, place, and time, normal affect, well appearing Unaccompanied A focused exam completed based on patient reported problems, see below: Skin Exam 1. RASH AND OTHER NONSPECIFIC SKIN ERUPTION Chest (Upper Torso, Anterior), Left Upper Back, Neck - Posterior, Right Upper Back [place] patches and papules Patient states that the cream works but rash returns if she doesn't use it. Patient denies any new cosmetics, detergents, soaps, travel or sun exposure. No history of eczema or allergies. I would like to biopsy at this point to rule out autoimmune cause. Offered biopsy today. Patient declines due to family pictures being this weekend. Discontinue Betamethasone and start using Protopic up to twice a day as needed when flared. Notify office if worsening despite treatment, advised to call for same day appointment for biopsy if not resolving or if she flares again. Related Medications tacrolimus (Protopic) 0.1 % ointment Apply to affected areas, twice a day when flared, 30 day supply Next Visit: call for same day appt for biopsy when she flares [facility] of Present illness Narrative 08-28-2024 Note Date & KcotAyyyQtducwgp30-15-3420 History of Present illness Narrative* AUNDREA Hastings - 08/28/2024 3:00 PM EDT Images from the original note were not included. Skin Check Location: Patient requests a full body skin examination Dermatologic history: no history of skin cancer, no history of atypical moles, no family history ofmelanoma Last visit: New patient Rash Location: Chest and back Duration: days Severity: mild Quality: itchy, denies burning Modifying Factors: better with steroid shot and TAC 0.1% Associated symptoms: bumps, redness Treatments tried: Hydrocortisone cream Current treatments: TAC 0.1% cream and states that it has been getting a little better with treatment but still itchy All pertinent medical history, medications, and allergies were reviewed. General Exam: alert, oriented to person, place, and time, normal affect, well appearing Unaccompanied Scalp, Examined , exam limited by hair Right leg Examined Head, Face Examined Left leg Examined Neck Examined Right foot Examined Chest Examined Left foot Examined Back Examined Buttocks Examined Patient kept underwear on Abdomen Examined Digits,nails: Examined Right arm Examined Left arm Examined Lymphatics: Not examined Hands Examined Skin Exam 1. MELANOCYTIC NEVUS OF TRUNK Generalized Scattered benign appearing, regular brown to light brown melanocytic papules and macules with similar morphology Counseled regarding these benign growths. Rarely, a nevus can develop into malignant melanoma, so any changing nevi should be promptly re-evaluated. 2. LENTIGO SIMPLEX Generalized Scattered chen macules in sun-exposed areas. The patient was informed that lentigines are benign pigmented lesions that occur on sun-exposed andsun-damaged skin. No treatment is necessary. Recommended regular use of broad spectrum sunscreen SPF 30 or higher 3. RASH AND OTHER NONSPECIFIC SKIN ERUPTION Chest (Upper Torso, Anterior), Left Upper Back, Neck - Posterior, Right Upper Back [place] patches and papules Patient denies any new cosmetics, detergents, soaps, travel or sun exposure. No history of eczema or allergies. Offered biopsy today. Patient declines. Discontinue TAC 0.1% and start Betamethasone using twice a day as needed when flared. Notify office if worsening despite treatment, advised to callfor same day appointment for biopsy if not resolving. Related Medications betamethasone dipropionate 0.05 % cream Apply (1g) to affected areas (back/chest)a, up to twice a day when flared, do not use one the face,groin, or underarms, 30 day supply 4. SEBORRHEIC KERATOSIS Scalp Stuck on verrucous, chen-brown papules and plaques. Patient was counseled regarding these benign growths. Removal is normally not necessary, but they may be removed if they are symptomatic or for cosmetic reasons. Next Visit: 1 year skin check [facility] Note Date & TypeNoteFacilityEvaluation note* Diagnosis Melanocytic nevus of trunk- Primary Benign neoplasm of skin of trunk, except scrotum Lentigo simplex Other dyschromia Rash and other nonspecific skin eruption Seborrheic keratosis documented in this encounter [facility] note Note Date & TypeNoteFacilityEvaluation note* Diagnosis Rash and other nonspecific skin eruption- Primary documented in this encounter [facility] Evaluation note Note Date & TypeNoteFacilityEvaluation note* Diagnosis Rash and other nonspecific skin eruption- Primary documented in [facility] encounter [facility] Note Date & TypeNoteFacilityEvaluation note* Diagnosis Rash and other nonspecific skin eruption- Primary Encounter for removal of sutures documented in this encounter [facility] Summary Purpose Family History No Family History Records FoundNo Family History Records FoundNo Family History Records FoundNo Family History Records FoundNo Family History Records FoundNo Family History Records Found Advance Directives No Advanced Directives Records FoundNo Advanced Directives Records FoundNo Advanced Directives Records FoundNo Advanced Directives Records FoundNo Advanced Directives Records FoundNo Advanced Directives Records Found Additional Source Comments INFORMATION SOURCE (unrecogn ized section and content) DATE CREATED AUTHOR 02/08/2020 [facility] DATE CREATED AUTHOR AUTHOR'S ORGANIZ ATION 02/09/2022 [facility] DATE CREATED AUTHOR AUTHOR'S ORGANIZ ATION 04/27/2022 [facility] DATE CREATED AUTHOR AUTHOR'S ORGANIZ ATION 05/03/2022 [facility] DATE CREATED AUTHOR AUTHOR'S ORGANIZ ATION 04/04/2024 [facility] DATE CREATED AUTHOR AUTHOR'S ORGANIZ ATION 10/27/2024 [facility] EPIC Care Teams (unrecognized sec tion and content) Team MemberRelationshipSpecialtyStart DateEnd Date Mario Olivo MD PCP - Dgpfoum70/4/23Team MemberRelationshipSpecialtyStart DateEnd Date Mario Olivo MD PCP - Clhxgkp49/4/23Team MemberRelationshipSpecialtyStart DateEnd Date Mario Olivo MD PCP - Nwapytt75/4/23Team MemberRelationshipSpecialtyStart DateEnd Date Mario Olivo MD [address] [place] [phone] PCP - Uzskgyq71/4/23Team MemberRelationshipSpecialtyStart DateEnd Date Mario Olivo MD [address] [place] [facility] [address] PCP [facility]03/21/23Te MemberRelationshipSpecialtyStart DateEnd Mario Olivo MD [address] [place] [facility] [place] [address] PCP [facility]03/21/23Te MemberRelationshipSpecialtyStart DateEnd Mario Olivo MD [address] [facility] [place] [address] PCP [facility]03/21/23 Reason for Visit (unrecogniz ed section and content) ReasonCommentsRashReasonCommentsFollow-upSuture / Staple Removal FOR RECORDS PERTAINING TO PATIENTS WHO ARE OR HAVE BEEN ENROLLED IN A CHEMICAL DEPENDENCY/SUBSTANCEABUSE PROGRAM, SOME INFORMATION MAY BE OMITTED. This clinical summary was aggregated from multiple sources. Caution should be exercised in using it in the provision of clinical care. This summary normalizes information from multiple sources, and as a consequence, information in this document may materially change the coding, format and clinical context of patient data. In addition, data may be omitted in some cases. CLINICAL DECISIONS SHOULD BE BASED ON THE PRIMARY CLINICAL RECORDS. [facility]. provides no warranty or guarantee of the accuracy or completeness of information in this document.
--- NOTE | 2025-02-20 09:56 | XR_ITS ---
The [address] [address] Patient Name: MIGEL LO MRN: [id number] date: 1985 Sex: F Assigned Patient Location: [facility] Current Patient Location: [facility] Accession/Order Number: [id number] Exam Date: 02/20/2025 10:00 Report Date: 02/20/2025 10:51 At the request of: HILARY LOO MD Procedure: XR hip BI w PEL 1V CLINICAL HISTORY: Low back and tailbone pain for the past 6 months with recent worsening. Chronic tightness at the hips. No injury. SACRUM AND COCCYX -3 views COMPARISON: None Lateral as well as AP views in upward and downward projection were obtained. No fracture or displacement is identified. The SI joints and sacral foramen appear intact, without acute fracture or bony destruction. There is minimal sclerosis at the SI joints. No soft tissue abnormalities are seen. XR/XR hip BI w PEL 1V IMPRESSION: NO ACUTE BONY FINDINGS. AP PELVIS WITH BILATERAL HIPS - 5 views COMPARISON: None AP view of the pelvis as well as AP and frog-lateral views of both hips were obtained. No fracture, dislocation or bony destruction is seen. The hip joint spaces are symmetric. A tiny os acetabuli is seen on the left. No hypertrophy is noted. The soft tissues are unremarkable. IMPRESSION: NO ACUTE PLAIN FILM FINDINGS. Impression dictated by: Shawnee Holland M.D. 02/20/2025 10:51 AM Dictation Location: [place] [address] Electronically authenticated by: [id number] Y Date: 02/20/2025 10:51
--- NOTE | 2025-02-20 09:56 | XR_ITS ---
The [address] [address] Patient Name: MIGEL LO MRN: [id number] date: 1985 Sex: F Assigned Patient Location: [facility] Current Patient Location: [facility] Accession/Order Number: [id number] Exam Date: 02/20/2025 10:00 Report Date: 02/20/2025 10:51 At the request of: HILARY LOO MD Procedure: XR hip BI w PEL 1V CLINICAL HISTORY: Low back and tailbone pain for the past 6 months with recent worsening. Chronic tightness at the hips. No injury. SACRUM AND COCCYX -3 views COMPARISON: None Lateral as well as AP views in upward and downward projection were obtained. No fracture or displacement is identified. The SI joints and sacral foramen appear intact, without acute fracture or bony destruction. There is minimal sclerosis at the SI joints. No soft tissue abnormalities are seen. XR/XR sacrum coccyx min 2V IMPRESSION: NO ACUTE BONY FINDINGS. AP PELVIS WITH BILATERAL HIPS - 5 views COMPARISON: None AP view of the pelvis as well as AP and frog-lateral views of both hips were obtained. No fracture, dislocation or bony destruction is seen. The hip joint spaces are symmetric. A tiny os acetabuli is seen on the left. No hypertrophy is noted. The soft tissues are unremarkable. IMPRESSION: NO ACUTE PLAIN FILM FINDINGS. Impression dictated by: Shawnee Holland M.D. 02/20/2025 10:51 AM Dictation Location: [place] [address] Electronically authenticated by: [id number] Y Date: 02/20/2025 10:51
== END 2025-02-20 09:48 | disposition home or self-care (01) ==
LOC: RAD 09:51
PROVIDERS: PCP Family Medicine; Visit Provider Family Medicine
DX: Z00.00 Encounter for general adult medical examination without abnormal findings (principal); M54.50 Low back pain, unspecified
CPT/HCPCS: 72220; 73523

== ENCOUNTER 2025-03-01 08:57 | Outpatient (RCR) | payer OTHER, SELFPAY | END 2025-04-04 07:05 | disposition home or self-care (01) | LOC: PT 08:57 | PROVIDERS: PCP Family Medicine; Visit Provider Family Medicine | DX: M54.50 Low back pain, unspecified (principal); M25.562 Pain in left knee; M25.551 Pain in right hip; M25.552 Pain in left hip | CPT/HCPCS: 97110; 97112; 97140; 97163 ==

== ENCOUNTER 2025-04-16 12:28 | Outpatient (OUT) | payer OTHER, SELFPAY ==
--- OUTSIDE RECORDS SUMMARY | 2025-04-16 12:32 | XMS_ITS | Clinical Summary ---
Author Organization [facility] Address [address] [place], [place] [address] Care Team Providers Care Coating Supervisor Name Role Phone Greyson Grimm Unavailable Mario Olivo MD Primary Care Provider [phone] Allergies Active AllergyReactionsCriticalityNoted DateCommentsNeosporin (Neomycin-Polymyx) Juylspu5701/05/2017 Red dots Medications MedicationSigDispense QuantityRefillsLast FilledStart DateEnd DateStatus acyclovir (ZOVIRAX) 400 mg tablet Take 1 tablet by mouth once daily.12/29/2016Active letrozole (FEMARA) 2.5 mg tablet Take 2 tablets by mouth once daily for 5 days. Menstrual cycle day 3-7 10 tablet Active Tbqqnfme-Ll-Wzu-Fe-FA ( VITAMIN) tab Take 1 tablet by [...] number is lower riskNot on file03/24/2020Data from: https://www.neighborhoodatlas.[facility].edu/. Last address used for calculationNot on file03/24/2020CommentsNoSex and Gender Information ValueDate RecordedSex Assigned at UxeriIjrtry38/01/2022 1:27 PM EDTLegal Sex Tpaopi3503/19/2012 8:08 AM ESTGender YsbyuphuRcltuu36/01/2022 1:27 PM EDTSexual YxobljqyqzgXhfhmpox89/01/2022 1:27 PM EDT Last Filed Vital Signs Vital SignReadingTime TakenCommentsBlood Nhaezhal393/5803 3:39 PM EDT Veqnj3288 3:39 PM EDTTemperature--Respiratory Rate--Oxygen Saturation-- Inhaled Oxygen Concentration--Jeovfd09.3 kg (144 lb)07/04/2017 3:39 PM EDTHeight 162.6 cm (5' 4 )01/05/2017 11:52 AM EDTBody Mass Index24.72001/05/2017 11:52 AM EDT Plan of Treatment Health MaintenanceDue DateLast DoneCommentsAnxiety Egxnucpuc37/04/2005Depression Vkbtmcdro05/04/2005HIV Jdpvqcnok87/04/2005Hepatitis C Uidnosves01/04/2005 DTaP,Tdap,Td Vaccine (1 - Tdap)2005Hepatitis B Vaccine (1 of 3 - 19+ 3- dose series)2005Cervical Cancer Hbeidyhit89/04/2008HPV Vaccine (1 - 3-dose SCDM series)2013Covid-19 Vaccine (1 - 2024- season)2024Influenza Vaccine (#1)2024 Insurance * Guarantor: Yris Carrillo TypeRelation to PatientDate of BirthPhone Billing AddressSelf BorCpht48 1985 NA (Work) [address] [place] [address] Care Teams Team MemberRelationshipSpecialtyStart DateEnd Mario Olivo MD [address] [place] [phone] PCP - GeneralFamily Medicine01/05/17 Greyson Grimm [address] [place] [phone] ReferringOb/Gyn12/14/16
--- OUTSIDE RECORDS SUMMARY | 2025-04-16 12:32 | XMS_ITS | Clinical Summary ---
Author Organization [facility] Address [address] [place] [address] Care Team Providers Care Paper Bag Press Operator Name Role Phone Mario Olivo MD Primary Care Provider [phone] Allergies Active AllergyReactionsCriticalityNoted GxtqEaamxjmkUheceBrtqids40/20/2017 NEOSPORIN Red dots Medications MedicationSigDispense QuantityRefillsLast FilledStart [...] and Gender InformationValue Date RecordedSex Assigned at OtxbnFlomja03/04/2023 11:34 AM ESTLegal SexFemale 06/30/2022 7:03 PM EDTGender RyamgdwuQcxzhw59/04/2023 11:34 AM ESTSexual OzletsokylgJoaaqodr24/04/2023 11:34 AM EST Last Filed Vital Signs Vital SignReadingTime TakenCommentsBlood Wssqoskb286/7004/05/2023 8:32 AM EST Pulse--Temperature--Respiratory Rate--Oxygen Saturation--Inhaled Oxygen Concentration--Qhzaun63.1 kg (148 lb)04/05/2023 8:32 AM XJDHqyucy878.3 cm (5' 3.5 )10/06/2021 12:00 PM EDTBody Mass Index25.8110/06/2021 12:00 PM EDT Plan of Treatment DateTypeDepartmentCare Team (Latest Contact Info)Njeqmptmidi05/12/2026 11:00 AM ESTProcedure Visit [facility] [place] [address] [place] [address] Leia Leong, ELIF [address] [place] [address] 08/26/2025 3:00 PM EDTOffice Visit [facility] [address] [place] [address] Nelly May PA [address] [place] [address] Insurance Care Teams Team MemberRelationshipSpecialtyStart DateEnd Mario Olivo MD [address] [place] [address] PCP - Gkrzvpp73/4/23
--- OUTSIDE RECORDS SUMMARY | 2025-04-16 12:32 | XMS_ITS | Clinical Summary ---
Author Organization [facility] Address [address] [place] [address] Phone Care Team Providers Care Cushion Stuffer Name Role Phone Unavailable Primary Care Provider Unavailabl e Social History Tobacco UseTypesPacks/DayYears UsedDateSmoking Tobacco: Never Assessed CommentsUnknownSex and Gender InformationValueDate RecordedSex Assigned at Not on fileLegal YpvWaitnr46/26/2022 2:41 PM ESTGender IdentityNot on fileSexual OrientationNot on file Plan of Treatment Not on file
--- OUTSIDE RECORDS SUMMARY | 2025-04-16 12:32 | XMS_ITS | Patient Health Record ---
Author Organization The [facility] in [place] Address [address] [place] [address] Care Team Providers Care Gas Station Cashier Name Role Phone Pj Olivo Primary Care Provider Allergies No Known Allergies Results Component Value Reference Range Notes XR hip BI w PEL 1V Reviewed date:02/20/2025 04:51:24 PM Interpretation: Performing Lab: Notes/Report: Source Facility: [place] [address] XRay Report Signed Patient: MIGEL LO MR#: [id number] : 1985 Acct:[id number] Age/Sex: 39 / F ADM Date: 02/20/25 Loc: RAD Attending Dr: Hilary Olivo M.D. Ordering Physician: Hilary Olivo M.D. Date of Service: 02/20/25 Procedure(s): XR hip BI w PEL 1V Accession Number(s): [id number] cc: Hilary Olivo M.D. [place] [address] Patient Name: MIGEL LO MRN: [id number] date: 1985 Sex: F Assigned Patient Location: RAD Current Patient Location: RAD Accession/Order Number: [id number] Exam Date: 02/20/2025 10:00 Report Date: 02/20/2025 10:51 At the request of: HILARY OLIVO MD Procedure: XR hip BI w PEL 1V CLINICAL HISTORY: Low back and tailbone pain for the past 6 months with recent worsening. Chronic tightness at the hips. No injury. SACRUM AND COCCYX -3 views COMPARISON: None Lateral as well as AP views in upward and downward projection were obtained. No fracture or displacement is identified. The SI joints and sacral foramen appear intact, without acute fracture or bony destruction. There is minimal sclerosis at the SI joints. No soft tissue abnormalities are seen. XR/XR hip BI w PEL 1V IMPRESSION: NO ACUTE BONY FINDINGS. AP PELVIS WITH BILATERAL HIPS - 5 views COMPARISON: None AP view of the pelvis as well as AP and frog-lateral views of both hips were obtained. No fracture, dislocation or bony destruction is seen. The hip joint spaces are symmetric. A tiny os acetabuli is seen on the left. No hypertrophy is noted. The soft tissues are unremarkable. IMPRESSION: NO ACUTE PLAIN FILM FINDINGS. Impression dictated by: Shawnee Holland M.D. 02/20/2025 10:51 AM Dictation Location: [place] [address] Electronically authenticated by: [id number] Y Date: 02/20/2025 10:51 Dictated By: Shawnee Holland M.D. Signed By: 02/20/25 1053 DD/ 1051 TD/TT: Shell Reprint Operator: XR sacrum coccyx min 2V Reviewed date:02/20/2025 04:51:24 PM Interpretation: Performing Lab: Notes/Report: Source Facility: [place] [address] [place] [address] XRay Report Signed Patient: MIGEL LO MR#: [id number] : 1985 Acct:[id number] Age/Sex: 39 / F ADM Date: 02/20/25 Loc: RAD Attending Dr: Hilary Olivo M.D. Ordering Physician: Hilary Olivo M.D. Date of Service: 02/20/25 Procedure(s): XR sacrum coccyx min 2V Accession Number(s): [id number] cc: Hilary Olivo M.D. [place] [address] Patient Name: MIGEL LO MRN: [id number] date: 1985 Sex: F Assigned Patient Location: [facility] Current Patient Location: [facility] Accession/Order Number: [id number] Exam Date: 02/20/2025 10:00 Report Date: 02/20/2025 10:51 At the request of: HILARY OLIVO MD Procedure: XR hip BI w PEL 1V CLINICAL HISTORY: Low back and tailbone pain for the past 6 months with recent worsening. Chronic tightness at the hips. No injury. SACRUM AND COCCYX -3 views COMPARISON: None Lateral as well as AP views in upward and downward projection were obtained. No fracture or displacement is identified. The SI joints and sacral foramen appear intact, without acute fracture or bony destruction. There is minimal sclerosis at the SI joints. No soft tissue abnormalities are seen. XR/XR sacrum coccyx min 2V IMPRESSION: NO ACUTE BONY FINDINGS. AP PELVIS WITH BILATERAL HIPS - 5 views COMPARISON: None AP view of the pelvis as well as AP and frog-lateral views of both hips were obtained. No fracture, dislocation or bony destruction is seen. The hip joint spaces are symmetric. A tiny os acetabuli is seen on the left. No hypertrophy is noted. The soft tissues are unremarkable. IMPRESSION: NO ACUTE PLAIN FILM FINDINGS. Impression dictated by: Shawnee Holland M.D. 02/20/2025 10:51 AM Dictation Location: [place] [address] Electronically authenticated by: [id number] Y Date: 02/20/2025 10:51 Dictated By: Shawnee Holland M.D. Signed By: 02/20/25 1053 DD/ 1051 TD/TT: Shell Reprint Operator: Reason For Referral Reason and knee - L and rossi hip Diagnosis 1 Low back pain at [facility] (M54.50) Referral Organization [facility] Medicine Referring Provider First Name Pj Referring Provider Last Name Geovani Referring Provider Speciality Family Med icine Referred Provider [facility], Physical Therap y Referred Provider Specialty Physical The rapist Referral Priority Routine Medications Medication SIG (Take, Route, Frequency, Duration) Notes Start Date End Date Status Acyclovir 200 MG 1 capsule Orally Daily; Duratio n: 90 days ActiveValium 5 MG1 tablet as needed Orally once about 1 hour before procedure; Duration: 1 days5Active Social History Tobacco Use: Social History Observation [...] containing alcohol in the past year?Monthly (2 points)Lciggw2WokqygnfmrxhleYrozpwgeCtkrqpl Control (Standard) Question Answer Notes Tobacco use: [...] in the past year?Monthly or less (1 point)Zuqykr5WyooeeyzqcxqwdWfjhxzqt Problems Problem Type SNOMED Code ICD Code Onset Dates Problem Status W/U Status Risk Notes Problem Eczema (82172678) Eczema (L30.9) ActiveconfirmedProblemWell adult (703873803)Well adult (Z00.00)Activeconfirmed ProblemSeasonal allergy (389751366)Seasonal allergies (J30.2)Activeconfirmed ProblemOverweight (208781669)Over weight (E66.3)ActiveconfirmedProblemInternal derangement of knee (39717816)Internal derangement of knee (M23.90)Active confirmed Vital Signs Heart Rate 66 /min 02/20/2025 Blood pressure mm Hg03/26/20258667Qvwvxl23 in03/26/2025lood pressure qbqoxxho622 mm Hg03/26/20250762Ohzlay156.4 lbs105/27/2024BMI26.33 kg/m203/26/2025 Encounters Encounter Location Date Provider Diagnosis [facility] [address] [place] [address] 08/23/2024 Pj Hoy Eczema L30.9 [facility] [address] [facility] [place] [address] 03/26/2025 Pj Hoy Internal derangement of knee M23.90 and Hip pain M25.559 [facility] [address] [facility] [place] [address] 08/24/2024 Pj Hoy Eczema L30.9 [facility] [address] [facility] [place] [address] 02/20/2025 Pj Hoy Well adult Z00.00 an d Low back pain at multiple sites M54.50 [facility] [address] [facility] [place] [address] 02/26/2025 Pj Hoy [facility] [facility] [place] [address] 03/26/2025Doug HoyBreast cancer screening Z12.31[facility] [address] [place] [address]/[facility] [place] [address]/11/2024[facility] [facility] [address]/08/2024 P[facility] [facility] [place] [address]/08/2024[facility] [facility] [place] [address]/01/2025Doug Hoy Assessments Encounter Date Diagnosis (ICD Code) Assessment Notes Treatment Notes Treatment Clinical Notes Section Notes 08/23/2024 Eczema (ICD-10 - L30.9) 08/24/2024Eczema (ICD-10 - L30.9)02/20/2025Well adult (ICD-10 - Z00.00) 02/20/2025Low back pain at multiple sites (ICD-10 - M54.50)03/26/2025Hip pain (ICD-10 - M25.559)Failed PT - exam constent with labrum tear - needs MRI both - this havse been ngoing and progresivefor years03/26/2025Internal derangement of knee (ICD-10 - M23.90)left knee conistente ihtw torn meniscus - faile PT and zzxqjw6503/26/2025reast cancer screening (ICD-10 - Z12.31) Plan Of Treatment Pending Test Test Name Order Date CMP (COMPLETE METABOLIC PANEL) 3 CMP (COMPLETE METABOLIC PANEL) 4 HEMOGLOBIN A1C (GLYCO) 03/25/2023 HEMOGLOBIN A1C (GLYCO) 03/22/2024 HEMOGLOBIN A1C (GLYCO) 02/20/2025 LIPID PANEL (CHOL/TRIG/HDL/LDL) 03/25/20 23 LIPID PANEL (CHOL/TRIG/HDL/LDL) 03/22/20 24 LIPID PANEL (CHOL/TRIG/HDL/LDL) 02/21/20 25 CBC WITH DIFF (EXP 02/2025) 03/22/2024 CBC WITH DIFF (EXP 02/2025) 03/25/2023 MAMM Mammograms CAD 03/25/2023 MRI HIP LT WO CON 03/26/2025 MRI KNEE LT WO CON 03/26/2025 XR HIP LT 2 3V W PELVIS 02/20/2025 THYROID PANEL (T4/TSH/FREE T3) 3 THYROID PANEL (T4/TSH/FREE T3) 5 THYROID PANEL (T4/TSH/FREE T3) 4 XR HIP RT 2 3V W PELVIS 02/20/2025 MM screening mammo BI 03/22/2024 BI US BREAST COMPLETE BILATERAL 03/26/20 25 BI US BREAST LIMITED BILATERAL 5 MRI HIP RIGHT WO CONTRAST 03/26/2025 CMP (COMP MET JOSE) w/eGFR CKD-EPI 2024 CBC WITH DIFF 02/20/2025 Insurance Providers Payer Name Payer Address Payer Phone Subscriber Number Group Number Insured Name Patient Relationship to Insured Coverage Start Date Coverage End Date [email or web address] [address] [place] [phone] [id number] Migel Lo Self - patient is the insured Medications Administered Medication Instructions Date of Administration Dosage Notes Dexamethasone, 4mg/mL 05/09/40420 mg Medical (General) History Medical History History ICD Code Well adult Z00.00 Seasonal allergies J30.2 Over weight E66.3 Surgical History Surgery Date(Month/Year) IVF- Surgery Breast Wpnkltovcfze2743
--- OUTSIDE RECORDS SUMMARY | 2025-04-16 12:32 | XMS_ITS | Clinical Summary ---
Author Organization [employer] Address [id number] [address] [place] [address] Care Team Providers Care Industrial Pharmacist Name Role Phone Mario Olivo MD Primary Care Provider [phone] Allergies Active AllergyReactionsCriticalityNoted DateCommentsMiconazole NitrateRashLow 09/19/2019 Medications [...] Problems ProblemNoted DateDiagnosed DateSevere pre-eclampsia in third etqhlqtrw00/16/2020 resulting from in vitro jhestsflierqd62/22/2020History of pre- eclampsia in prior , currently bmumuypm36/22/2020History of delivery, currently ggwociuq85/22/2020 Overview (10/08/2019): Admitted to evaluate BP for suspected preeclampsia- subsequently had ROM and labor. Delivered in 4-6 hours. While in labor or after, had diagnosis likely consistent with preeclampsia with severe features. Was not induced. 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 YONATHAN mirpboqy06/22/2020Pregnancy with history of miscarriage, first trimester 10/08/2019Oral herpes simplex, not currently swnign2210/08/2019 Overview (10/08/2019): SP recent rx History of onizgcgr42/22/2020 Immunizations No known immunizations Family History Medical HistoryRelationNameCommentsHypertensionFatherDepressionMother HypertensionMotherMigrainesMotherRelationNameStatusCommentsFatherMother Social History Tobacco UseTypesPacks/DayYears UsedDateSmoking Tobacco: NeverSmokeless Tobacco: NeverAlcohol UseStandard Drinks/WeekCommentsNot Currently0 (1 standard drink = 0.6 oz pure alcohol)PHQ-2AnswerDate RecordedTotal Jooxx898Childcare AnswerDate RecordedDo problems getting child watch attendant make it difficult for you to work or study?No01/08/2020EmploymentAnswerDate RecordedDo you need help finding a local career center and/or a training program?No01/08/2020Purpose - LifeAnswer Date RecordedPurpose and direction in nxvwXyfgfvb25/11/2021CommentsNoSex and Gender InformationValueDate RecordedSex Assigned at BirthNot on fileLegal TldLlxdbd37/29/2020 2:13 PM EDTGender IdentityNot on fileSexual OrientationNot on file Last Filed Vital Signs Vital SignReadingTime TakenCommentsBlood Gqmufymr832/8910 9:00 AM EDT Zblpv93251/02/2020 9:00 AM EDCGrykrdkjmqa43.5 ??C (97.7 ??F)01/18/2020 3:40 AM EDTRespiratory Inws1875 9:00 AM EDTOxygen Muegremerz70%01/16/2020 6:00 PM EDTInhaled Oxygen Concentration--Zvptgo16.2 kg (209 lb 14.1 oz)01/17/2020 8:00 PM PLHWgfmwe720.6 cm (5' 4 )01/08/2020 2:57 PM EDTBody Mass Index36.03 01/08/2020 2:57 PM EDT Plan of Treatment Health MaintenanceDue DateLast DoneCommentsDepression Mcdtaocgp09/04/1999Tobacco Fufjdrjzu48/04/1999Adult BMI Swsjicyli26/04/2005DTaP,Tdap and Td Vaccines (1 - Tdap)2005Pap Smear11/20/2007Influenza Rvxjjrv17/01/435162, 02/16/2016, 03/19/2009 Medical Devices Not on file Insurance Advance Directives * Full Code (Latest Code Status on File) Date ActivatedDate InactivatedComments01/08/2020 3:55 01/18/2020 10:31 PM Care Teams Team MemberRelationshipSpecialtyStart DateEnd Date Mario Olivo MD PCP - GeneralFamily Medicine09/14/19
--- NOTE | 2025-04-16 12:33 | MR_ITS ---
[place] [id number] Patient Name: MIGEL LO MRN: [id number] date: 1985 Sex: F Assigned Patient Location: MRI Current Patient Location: MRI Accession/Order Number: [id number] Exam Date: 04/16/2025 12:45 Report Date: 04/16/2025 18:45 At the request of: HILARY LOO MD Procedure: MR knee LT wo con MR knee LT wo con 04/16/2025 2:25 PM SIGNS AND SYMPTOMS: internal derangement of knee PROTOCOL: Multiplanar multisequence MR images of the left knee without IV contrast COMPARISON: None. FINDINGS: Fluid: There is a small joint effusion. 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 Medial compartment: Medial meniscus: Intact. Medial collateral ligament: Intact. 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 Medial tibial plateau cartilage: Preserved. Lateral compartment: Lateral meniscus: Intact. Lateral collateral ligament: Intact. Lateral femoral condyle cartilage: Preserved. Lateral tibial plateau cartilage: Preserved. Posterolateral corner: Popliteus tendon: Intact. Popliteofibular ligament: Intact. Proximal tibiofibular joint: Preserved. Anterior compartment: Alignment: Normal. Quadriceps tendon: Intact. Patellar tendon: Intact. Retinaculum: Medial intact. Lateral intact. Patellar cartilage: Preserved. Osteophytosis. Trochlea: Preserved. Plica: None Hoffa fat pad: Normal Intercondylar compartment: Anterior cruciate ligament: Intact. Posterior cruciate ligament: Intact. Bones (other than subarticular marrow): Normal. Muscles: Normal. Vessels: Normal. Nerves: Normal. 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 There is a small joint effusion. 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 The left knee is otherwise structurally intact. Impression dictated by: Kenn Lin M.D. 04/16/2025 6:45 PM Dictation Location: [place] [address] Electronically authenticated by: [id number] Y Date: 04/16/2025 18:45
--- NOTE | 2025-04-16 12:33 | MR_ITS ---
[place] [id number] Patient Name: MIGEL LO MRN: [id number] date: 1985 Sex: F Assigned Patient Location: MRI Current Patient Location: MRI Accession/Order Number: [id number] Exam Date: 04/16/2025 12:45 Report Date: 04/16/2025 18:31 At the request of: HILARY LOO MD Procedure: MR hip RT wo con MR hip RT wo con 04/16/2025 2:25 PM SIGNS AND SYMPTOMS: ^hip pain M25.559 PROTOCOL: Multiplanar multisequence MR images of the right hip without IV contrast COMPARISON: 02/20/2025 FINDINGS: Alignment: Normal. Femoroacetabular impingement anatomy: None. Dysplasia: None. Fluid: No joint effusion. Labrum: Grossly intact. Cartilage: Femoral: Preserved. Acetabular: Preserved. Capsule/ligaments: Normal. Muscles/tendons/entheses: Flexors: Normal. Extensors: Normal. Abductors: Normal. Adductors: Normal. Rotators: Normal. Hamstrings: Normal. Bones (other than subarticular marrow): Normal. Vessels: Normal. Nerves: Visualized right sciatic and femoral nerves appear normal. Soft tissues: Normal. Viscera: Visualized pelvic structures appear normal. No lymphadenopathy by size criteria. No free fluid in the pelvis. MR/MR hip RT wo con IMPRESSION: Normal MR images of the right hip. Impression dictated by: Kenn Lin M.D. 04/16/2025 6:31 PM Dictation [facility] Electron[facility] authenticated by: [id number] Y Date: 04/16/2025 18:31
--- NOTE | 2025-04-16 12:33 | MR_ITS ---
[place] [id number] Patient Name: MIGEL LO MRN: [id number] date: 1985 Sex: F Assigned Patient Location: MRI Current Patient Location: MRI Accession/Order Number: [id number] Exam Date: 04/16/2025 12:45 Report Date: 04/16/2025 18:37 At the request of: HILARY LOO MD Procedure: MR hip LT wo con MR hip LT wo con 04/16/2025 2:25 PM SIGNS AND SYMPTOMS: ^hip pain M25.559 PROTOCOL: Multiplanar multisequence MR images of the left hip without IV contrast COMPARISON: 02/20/2025 FINDINGS: Alignment: Normal. Femoroacetabular impingement anatomy: There is mild prominence of the right femoral head neck junction. There is mild subcortical cystic change along the anterior left femoral head neck junction suspicious for developing fibro-osseous lesion. Findings suggest cam-type femoral acetabular impingement. Dysplasia: None. Fluid: No joint effusion. Labrum: Grossly intact. Cartilage: Femoral: Preserved. Acetabular: Preserved. Capsule/ligaments: Normal. Muscles/tendons/entheses: Flexors: Normal. Extensors: Normal. Abductors: Normal. Adductors: Normal. Rotators: Normal. Hamstrings: Normal. Bones (other than subarticular marrow): Normal. Vessels: Normal. Nerves: Visualized left sciatic and femoral nerves appear normal. Soft tissues: Normal. Viscera: Visualized pelvic structures appear normal. No lymphadenopathy by size criteria. No free fluid in the pelvis. MR/MR hip LT wo con IMPRESSION: There is mild prominence of the right femoral head neck junction. There is mild subcortical cystic change along the anterior left femoral head neck junction suspicious for developing fibro-osseous lesion. Findings suggest cam-type femoral acetabular impingement. No evidence of underlying labral pathology. However, MR arthrogram of the left hip may be more sensitive. Normal MRI of the left hip, otherwise. Impression dictated by: Kenn Lin M.D. 04/16/2025 6:37 PM Dictation Location: [place] [address] Electronically authenticated by: [id number] Y Date: 04/16/2025 18:37
--- OUTSIDE RECORDS SUMMARY | 2025-04-16 12:43 | XMS_ITS | CCD ---
Author Organization [facility] Care Team Providers Care Pantomimist Name Role Phone REQUEST, DR NONE LISTED Admitting Unavaila ble REQUEST, NONE LISTED Attending Unavaila kevin OLIVO, DR RICHARD Primary Care Unavailable MERLINE DARBY MD, DMD Attending Unav ailable Mario Olivo Attending Unavailable Mario Olivo Primary Care Unavailable Mario Olivo Admitting Unavailable Mario Olivo MD Primary Care Provider [phone] Mario Olivo MD Primary Care Provider [phone] SANDRA MAY Attending Unavailable SANDRA MAY Attending Unavailable SANDRA MAY Attending Unavailable ELSA NAM Attending Unavailable Mario Olivo MD Primary Care Provider Allergies Allergy ClassificationReported Allergen(s)Allergy TypeDate of OnsetReaction(s) Facility (1 source)Bacitracin / Neomycin / Polymyxin BDrug Hplcuwx57-26-3602[facility] (3 sources)MiconazoleDrug Brhcszy33-80-7053DjnuUNSD Search Initiatives Work Phone: (11 sources)OtherAllergy to xnxsgcons31-57-1580OtibduyWKJW Healthcare Medications Current Medications MedicationDrug Class(es)DatesSig (Normalized)Sig (Original)acyclovir 400 mg oral tablet (5 sources)Herpesvirus Nucleoside Analog DNA Polymerase Inhibitor, Herpes Simplex Virus Nucleoside Analog DNA Polymerase Inhibitor, Herpes Zoster Virus Nucleoside Analog DNA Polymerase InhibitorStart: 02-28-2023 End: 18-00-8135gtxr 1 tablet by mouth in the morningacyclovir (Zovirax) 400 MG tablet Take 400 mg by mouth in the morning. 02/28/2023 10/02/2024 Discontinued (Therapy completed)betamethasone 0.5 mg/ml topical cream (4 sources)CorticosteroidStart: 08-28-2024 End: 61-82-7719smtugcfqfvffl dipropionate 0.05 % cream Indications: Rash and other nonspecific skin eruption Apply(1g) to affected areas (back/chest)a, up to twice a day when flared, do not use one the face, groin, or underarms, 30 day supply 45 g 11 08/28/2024 10/02/2024 Discontinued (Ineffective)ivermectin 3 mg oral tablet (2 sources)Antiparasitic, PediculicideStart: 25-23-5353uxwvgcvzin (Stromectol) 3 MG tablet Indications: Rash and other nonspecific skin eruption Take 5 tablets all together on one day, repeat in 1 week 10 tablet 10/23/2024 ActiveStart: 06-86-9408joigmqlnfr (Stromectol) 3 MG tablet Indications: Rash and other nonspecific skin eruption Take 5 tablets all together on one day, repeat in 1 week 10 tablet 10/23/2024 Activetacrolimus 0.001 mg/mg topical ointment (7 sources)Calcineurin Inhibitor ImmunosuppressantStart: 31-30-3077rktvavkrwg (Protopic) 0.1 % ointment Indications: Rash and other nonspecific skin eruption Apply toaffected areas, twice a day when flared, 30 day supply 60 g 11 10/02/2024 Activetriamcinolone acetonide 1 mg/ml topical cream (2 sources)CorticosteroidStart: 08-23-2024 End: 51-75-8560xnpfpglcluodo (Kenalog) 0.1 % cream 1 Application every 12 (twelve) hours 08/23/2024 10/02/2024 Discontinued Problems Problem ClassificationProblemDateDocumented DateEpisodic/ChronicOther aftercare (2 sources)Removal of sutures done; Translations: [Encounter for removal of sutures]59-11-1455IdbveoanHzayn and unspecified benign neoplasm (2 sources)Melanocytic nevus of trunk; Translations: [Melanocytic nevi of trunk] 14-84-1945ZrsugxpsIqjgp screening for suspected conditions (not mental disorders or infectious disease) (1 source)Encounter for screening mammogram for malignant neoplasm of breast; Translations: [Encounter for screening mammogram for malignant neoplasm of breast]Onset: 66-34-4100WmuynxakSveqr skin disorders (2 sources)Lentigo simplex; Translations: [Other melanin hyperpigmentation] 47-48-8800VjokeefmKfslv skin disorders (10 sources)Eruption; Translations: [Rash and other nonspecific skin eruption] 24-52-8704YchqgovaFswcp skin disorders (2 sources)Seborrheic keratosis; Translations: [Other seborrheic keratosis] 13-17-9407Xktdyvwv Results Test NameValueInterpretationReference RangeFacilityNo Panel Informationon 26-12-0738Boqo of biopsy: punch Informed consent: discussed and [...] used: 2 Specimen sent for: H&E Photo [facility] screening mammo BI w/CADon 19-76-8132ZY screening mammo BI w/[facility] [place] [address] Mammography Report Signed Patient: Migel Lo MR#: [id number] : 1985 Acct:[id number] Age/Sex: 38 / F ADM Date: 03/29/24 Loc: [place] Room: Type: [facility] Attending Dr: Mario Oilvo MD Copies to: Mario Olivo MD Ordering [...] Viet Sifuentes M.D.03/29/2024 10:34 AM Dictation Location: [facility] Transcribed By: [facility] 03/29/24 1034 Dictated By: Viet Sifuentes DO 03/29/24 1033 Signed By: 03/29/[address] [place] [address] Physician GroupUS PELVIS W/ TRANSVAGINALon 93-96[place] [address] Ultrasound Report Signed Patient: MIGEL LO MR#: [id number] : 1985 Acct:[id number] Age/Sex: 37 / F ADM Date: 03/28/23 Loc: US Attending Dr: Concetta Rodriguez D.O. Ordering Physician: Concetta Rodriguez D.O. Date of Service: 03/28/23 Procedure(s): US pelvis w/ transvaginal Accession Number(s): [id number] cc: Concetta Rodriguez D.O.; Physician,Non-Staff Frank The [address] [address] Patient Name: MIGEL LO MRN: [facility]:[id number] date: 1985 Sex: F Assigned Patient Location: Current Patient Location: LAB Accession/Order Number: [id number] Exam Date: 03/28/2023 08:00 Report Date: 03/28/2023 [...] M.D. Signed By: 03/28/23921 DD/ 8 TD/TT: Mechanical Engineer:TBHRadiology, Radiologist, MD - 03/28/2023 [place] [address] Ultrasound Report Signed Patient: MIGEL LO MR#: [id number] : 1985 Acct:[id number] Age/Sex: 37 / F ADM Date: 03/28/23 Loc: US Attending Dr: Concetta Rodriguez D.O. Ordering Physician: Concetta Rodriguez D.O. Date of Service: 03/28/23 Procedure(s): US pelvis w/ transvaginal Accession Number(s): [id number] cc: Concetta Rodriguez D.O.; Physician,Non-Staff Frank The [address] [address] Patient Name: MIGEL LO MRN: [facility]:[id number] date: 1985 Sex: F Assigned Patient Location: US Current Patient Location: LAB Accession/Order Number: [id number] Exam Date: 03/28/2023 08:00 Report Date: 03/28/2023 [...] M.D. Signed By: 03/28/23921 DD/ 8 TD/TT: Mechanical Engineer: RYAN HealthcareRadiology Study observation (narrative)RYAN HealthcareUS PELVIS W/ TRANSVAGINALOrdered By: Radiologist Radiology on 17-46-3541QMLR Healthcare Work Phone: m TUBERCULOSIS BY Nik CARLOS 02-04-2022M. TB Mitogen-Nil9.97 IU/mLNOhioHealth Grant Medical CenterComment on above:Order Comment: The M. Tuberculosis antigen levels cannot be correlated to stage or degree of infection, response to therapy or likelihood for progression to active disease. Results from QuantiFERON TB Gold Plus must be used in conjunction with individual epidemiological history, current medical status, and results of other diagnostic evaluation.Performed By: #### QFTB #### [facility] (DEFAULT) [address] [id number]. TB Nil0.03 IU/[facility]. [facility] HospitalComment on above:Order Comment: The M. Tuberculosis antigen levels cannot be correlated to stage or degree of infection, response to therapy or likelihood for progression to active disease. Results from QuantiFERON TB Gold Plus must be used in conjunction with individual epidemiological history, current medical status, and results of other diagnostic evaluation.Performed By: #### QFTB #### [facility] (DEFAULT) [address] [address]J. TB TB1-Nil0.00 IU/mLNOhioHealth Grant Medical CenterComment on above:Order Comment: The M. Tuberculosis antigen levels cannot be correlated to stage or degree of infection, response to therapy or likelihood for progression to active disease. Results from QuantiFERON TB Gold Plus must be used in conjunction with individual epidemiological history, current medical status, and results of other diagnostic evaluation.Performed By: #### QFTB #### [facility] (DEFAULT) [address] [address]M. TB TB2-Nil0.00 IU/St. Francis HospitalComment on above:Order Comment: The M. Tuberculosis antigen levels cannot be correlated to stage or degree of infection, response to therapy or likelihood for progression to active disease. Results from QuantiFERON TB Gold Plus must be used in conjunction with individual epidemiological history, current medical status, and results of other diagnostic evaluation.Performed By: #### QFTB #### [facility] (DEFAULT) [address] [address]G. Tuberculosis by Quantiferon in tubeNegativeNormalNegative [facility] CampusComment on above:Order Comment: The M. Tuberculosis antigen levels cannot be correlated to stage or degree of infection, response to therapy or likelihood for progression to active disease. Results from QuantiFERON TB Gold Plus must be used in conjunction with individual epidemiological history, current medical status, and results of other diagnostic evaluation.Performed By: #### QFTB #### [facility] (DEFAULT) [address] [address]Eegzyyofvdxewmilnm [phone]Mzekxqueif [facility]als [facility] Dermatopathology Laboratory [address] [place] [address] DERMATOPATHOLOGY REPORT Name:MIGEL LO Rec #. [id number] Location: [facility] Date of Procedure: 02/05/2020 Race: Date Received: 02/07/2020 /Sex: 1985 (Age: 34) / F Date Reported: 02/08/2020 Other: Submitting Physician:ELSA NAM APRN, SHANK ARCHER-C FINAL DIAGNOSIS A. SKIN, R INFRAMAMMARY, BIOPSY: DERMAL NEVUS, PRESENT ON THE DEEP MARGIN. B. SKIN, L INFERIOR FLANK, BIOPSY: COMPOUND NEVUS, PRESENT ON THE DEEP MARGIN. Electronically Signed Out by SHUKRI FULTON M.D. Electronically Signed Out By SHUKRI FULTON MD/[facility] By the signature on this report, the [...] 3 mm. Inked and embedded in toto. [facility]/02/07/2020 Microscopic Description: A. Microscopic analysis shows a symmetric, papular proliferation of bland melanocytes in dermis. Dermal melanocytes mature with increasing depth in dermis and show no cytologic atypia. B. Microscopic analysis shows a symmetric proliferation of melanocytes in epidermis and dermis. Melanocytes nest regularly along the dermal-epidermal junction, and dermal melanocytes mature with increasing depth in dermis. The melanocytes show no cytologic atypia.[facility] Onamia HospitalComment on above:Performed By: #### D #### Dermatopathology Encounters Encounter DateEncounter TypeCare ProviderFacilityStart: 10-23-2024 End: 99-99-6600Exzdli flowsheetNatalie A Felter RELOCATION DIRECTOR-FLY SETTER Work Phone: [facility] SWS DERMStart: 10-23-2024 End: 70-39-9488Yoypte flowsheetNatalie A Felter RELOCATION DIRECTOR-FLY SETTER Work Phone: [facility] DERMStart: 10-23-2024 End: 07-83-8618Tglqbp outpatient visit 5 minutesNatalie A Felter RELOCATION DIRECTOR-FLY SETTER Work Phone: [facility] SWS DERMComment on above:Rash and other nonspecific skin eruption (Primary Dx); Encounter for removal of suturesStart: 10-23-2024 End: 61-61-0332slvwnhvjsaQJZMBKM A FELTERNot AvailableStart: 10-11-2024 End: 69-99-7481forypolduaINCXP VENICEEIMNot AvailableStart: 10-11-2024 End: 45-02-1108Wgbtvrm encounter procedureDallas Medical Center Work Phone: [facility] SWS DERMComment on above:Rash and other nonspecific skin eruption (Primary Dx)Start: 10-02-2024 End: 78-29-7123zsghrcmsqzMCQHJ NORTHEIMNot AvailableStart: 10-02-2024 End: 79-60-4187Shsnot outpatient visit [facility] Work Phone: [facility] SWS DERMComment on above:Rash and other nonspecific skin eruption (Primary Dx)Start: 08-28-2024 End: 15-35-5727Mebsuk outpatient new [facility] Work Phone: [facility] SWS DERMComment on above:Melanocytic nevus of trunk (Primary Dx); Lentigo simplex; Rash and other nonspecific skin eruption; Seborrheic keratosisStart: 08-28-2024 End: 33-42-5519ytegjwvyfuWEAAP VENICEEIMNot AvailableStart: 08-28-2024 End: 75-69-4836Uazroe [facility] Work Phone: [facility] SWS DERMStart: 08-28-2024 End: 45-87-9725Lxoyrc flowsheetRychristopher May AUNDREA Work Phone: [facility] SWS DERMStart: 03-29-2024 End: 56-55-0466dvexmhcwjdQozowsd M HoyFacility:[facility] Start: 03-28-2023 End: 88-74-9792Tnzaeeklo Result EncounterCorey Jennifer DO Work Phone: [facility] External Department UnsolicitedStart: 03-28-2023 End: 23-53-6761Owmgmftcy Result EncounterCorey Jennifer DO Work Phone: NOXU External Department UnsolicitedStart: 05-03-2022 ambulatoryMAADARSH DARBY MD DMDFacility:[address]Kaxdm: 64-35-2362ouuyusrgbnKN NONE LISTED REQUESTFacility:H1 Procedures DateProcedureProcedure DetailPerforming ClinicianStart: 31-77-5555VROD / NAIL BIOPSYRymalue Yadira PA Work Phone: Start: 47-99-5591PC PELVIS W/ TRANSVAGINALCorey Jennifer DO Work Phone: Plan of Treatment DateCare ActivityDetailAuthorStart: 08-26-2025 End: 77-08-4957Jdxapkd encounter procedureNOMS SWS DERMStart: 12-05-2024 End: 05-83-6021Fddttkh encounter reezgbpny19/20/2025 2:50 PM EDT Office Visit [facility] [address] [place] [address] Nickie Estrada MD [address] [place] [address] [facility] SWS DERMStart: 10-23-2024 End: 90-03-0617Imnuyeb encounter procedureNOMS SWS DERMComment on above:Arrived Start: 08-28-2024 End: 17-19-1740Uyunxea encounter nnylhmwej07/13/2025 3:00 PM EDT Office Visit [facility] [address] [place] [address] Sandra May PA [address] [place] [address] ArrivedNOWEST [facility] DERMComment on above:Arrived Dermatopathology examDermatopathology exam Pathology and Cytology Timed Rash and other nonspecific skin eruption ReleaseUpon Ordering for 1 Occurrences starting 10/11/2024NONH Healthcare Work Phone: comment on above:Release Upon Ordering for 1 Occurrences starting 10/11/2024 Payers DatePayer CategoryPayerPolicy [id number] Health [id number] [id number] 2.16840.1.105306.3.57[id number] [id number] 2.16.840.1.276938.3.5[id number] 2.16840.1.351387.3.57[id number] 2.16840.1.918918.3.57[id number] 2.16840.1.511086.3.579.2.531 Social History DateTypeDetailFacilityStart: 03-20-2023 End: 85-88-2515Xwffesb smoking status NHISNever smoked tobaccoBLUE MOUNTAIN HOSPITAL Healthcare Start: 03-22-2023 End: 89-06-3752Ntmabrgfu beverage intakeCurrent drinker of alcohol (finding)[facility] HealthcareStart: 03-20-2023 End: 67-01-9097Wvcbsxp of Social functionNONH HealthcareStart: 03-20-2023 End: 90-97-8469Jlvaese Use Disorder Identification Test - Consumption [AUDIT-C] [facility] HealthcareHow often to you have a drink containing alcohol?Monthly or less [facility] HealthcareHow many standard drinks containing alcohol do you have on a typical day?1 or 2NOMS HealthcareHow often do you have 6 or more drinks on 1 occasion?NeverNONH HealthcareStart: 18-36-6612Gxcgvwn CommentCaffeine intake: 1 can energy drink dailyNONH HealthcareStart: 47-64-7689Twu assigned at FemaleBLUE MOUNTAIN HOSPITAL HealthcareStart: 58-37-0278Netnzr identityIdentifies as female gender (finding)[facility] HealthcareStart: 66-15-6768Hkvazq orientationHeterosexual (finding)[facility] HealthcareStart: 72-59-8904Uubktjq use and exposureSmokeless tobacco non-userNONH HealthcareStart: 07-27-1508IvsJuziinZBXW Healthcare History of Present illness Narrative 10-23-2024 Note Date & WfxoLendIywgvrqq36-29-5100 History of Present illness Narrative* Elsa Pinky Nam, RELOCATION DIRECTOR-FLY SETTER - 10/23/2024 9:10 AM EDT Suture Removal [...] sometimes Ibuprofen for headache. She did take CGVFI409 capsules in early June for 24 days, [...] 6 weeks with [facility] History of Present illness Narrative 10-11-2024 Note Date & UvlcSmliPfaqnenq75-61-0229 History of Present illness Narrative* AUNDREA Hastings - 10/11/2024 2:50 PM EDT Images from [...] OTHER NONSPECIFIC SKIN ERUPTION Mid Upper Back [place] patches and plaques Biopsy today, see procedure [...] Present illness Narrative 10-02-2024 Note Date & MbdzNmmvOxruglyp84-50-5338 History of Present illness Narrative* AUNDREA Hastings [...] Back, Neck - Posterior, Right Upper Back [place] patches and papules Patient states that the [...] Present illness Narrative 08-28-2024 Note Date & FywkTnaiSekodjga16-31-8037 History of Present illness Narrative* AUNDREA Hastings [...] Back, Neck - Posterior, Right Upper Back [place] patches and papules Patient denies any new [...] 1 year skin check documented in this encounterBL[facility] Evaluation note Note Date & TypeNoteFacilityEvaluation note* Diagnosis Melanocytic nevus of trunk- Primary Benign neoplasm of skin of trunk, except scrotum Lentigo simplex Other dyschromia Rash and other nonspecific skin eruption Seborrheic keratosis documented in this encounter [facility] Evaluation note Note Date & TypeNoteFacilityEvaluation note* Diagnosis Rash and other nonspecific skin eruption- Primary documented in this encounter [facility] Evaluation note Note Date & [...] section and content) DATE CREATED AUTHOR 02/08/2020 [facility] DATE CREATED AUTHOR AUTHOR'S ORGANIZ ATION 02/09/2022 [facility] DATE CREATED AUTHOR AUTHOR'S ORGANIZ ATION 04/27/2022 [facility] DATE CREATED AUTHOR AUTHOR'S ORGANIZ ATION 05/03/2022 [facility] DATE CREATED AUTHOR AUTHOR'S ORGANIZ ATION 04/04/2024 [facility] DATE CREATED AUTHOR AUTHOR'S ORGANIZ ATION 10/27/2024 [facility] EPIC Care Teams (unrecognized sec tion and content) Team MemberRelationshipSpecialtyStart DateEnd Date Mario Olivo MD PCP - Odhzzgk04/4/23Team MemberRelationshipSpecialtyStart DateEnd Date Mario Olivo MD PCP - Bqrlqvs44/4/23Team MemberRelationshipSpecialtyStart DateEnd Date Mario Olivo MD PCP - Qtmxdyj14/4/23Team MemberRelationshipSpecialtyStart DateEnd Date Mario Olivo MD [address] [place] [phone] PCP - Sczpxab16/4/23Team MemberRelationshipSpecialtyStart DateEnd Date Mario Olivo MD [address] [facility] [place] [address] PCP [facility]03/21/23Te MemberRelationshipSpecialtyStart DateEnd Mario Olivo MD [address] [facility] [place] [address] PCP [facility]03/21/23Te MemberRelationshipSpecialtyStart DateEnd Mario Olivo MD [address] [facility] [address] PCP [facility]03/21/23 Reason for Visit (unrecogniz ed section [...] BE BASED ON THE PRIMARY CLINICAL RECORDS. [facility]Private[facility]. provides no warranty or guarantee of the accuracy or completeness of information in this document.
--- NOTE | 2025-04-16 14:48 | MM_ITS ---
Patient Name: MIGEL LO MR#: [id number] : 1985 Exam Date: 04/16/2025 Ordering Doctor: DR HILARY LOO . RADIOLOGY REPORT PROCEDURE: MM TOMOSYNTHESIS SCREENING BI COMPARISON: MM TOMOSYNTHESIS SCREENING BI, 03/29/2024. INDICATIONS: Screening Calculator Name NCI Breast Cancer Risk Assessment Tool 5 Year Breast Cancer Risk Not Reported. Lifetime Breast Cancer Risk Not Reported. Personal Breast Cancer No Personal Ovarian Cancer No Treatments None Family Cancers None LOCATION: [facility] BREAST COMPOSITION: There are scattered areas of fibroglandular density. FINDINGS: DIAGNOSTIC CATEGORY 1--NEGATIVE. RIGHT BREAST: No significant suspicious finding. LEFT BREAST: No significant suspicious finding. RECOMMENDATIONS: CLINICAL EVALUATION. Dictated by: Reed Ramos MD on 04/17/2025 at 09:35 Approved by: Reed Ramos MD on 04/17/2025 at 09:37
== END 2025-04-16 12:29 | disposition home or self-care (01) ==
PROVIDERS: PCP Family Medicine; Visit Provider Family Medicine
DX: M25.551 Pain in right hip (principal); M25.552 Pain in left hip; M23.92 Unspecified internal derangement of left knee; Z12.31 Encounter for screening mammogram for malignant neoplasm of breast
CPT/HCPCS: 73721; 77063; 77067